=== PATIENT | male | born 1985 | race Caucasian/White ===

== ENCOUNTER 2016-11-15 05:01 | Emergency (ER) | payer OTHER ==
[~2016-11-15] VITALS: Ht 175.3 cm; Wt 104.3 kg
[~2016-11-15 05:01] MED LIST: ACHD5005 PO; ALBU8.5H4 IH; AMOX500C2 PO; AZIT-21 PO; CODE118S2 PO; CPR500T PO; CYCL10TA9 PO; DCS100C PO; DOXY100C2 PO; GFCD10B PO; HYDR1TAB PO; NAPR-243 PO; NAPR-689 PO; NAPR550T PO; PRD20T PO; PRED10TA PO; PRM25T PO; [UNRECOGNIZED DRUG - CODE] PO
[2016-11-15] MEDS ORDERED: ALLO300T2 (05:19)
[2016-11-15] MEDS ORDERED: PRD20T PO (06:29)
--- NOTE | 2016-11-15 06:29 | ED General ---
General Chief Complaint: Lower Extremity Stated Complaint: R THIGH PAIN Nursing Triage Note: PT TO ED 5 W/ C/O RT THIGH PAIN ET BURNING ONSET YESTERDAY, WORSE TODAY. DENIES INJURY. Nursing Sepsis Screen: No Definite Risk Source of Information: Patient Exam Limitations: No Limitations History of Present Illness Time Seen by Provider: 05:15 Initial Comments This 31-year-old gentleman presents to the emergency room with complaints of pain in the right thigh with accompanying paresthesia, more so affecting the medial portion of the thigh. Symptoms started yesterday. He denies any injury. He has chronic lower back pain but no acute exacerbation. He denies any recent travel or prolonged sedentary states. He quit smoking 9 months ago. 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 He has recently been seeing a chiropractor for neck issues and chronic back pain. He has not taken any medications for this. He presents to the emergency room at the urging of his . Allergies and Home Medications Allergies Coded Allergies: ibuprofen (Unverified Adverse Reaction, Unknown, 04/20/14) Home Medications Allopurinol 300 Mg Tablet, #30 (Reported) Prednisone 20 Mg Tab, 20 MG PO DAILY, #3 Prescribed by: MARI MEADE on 11/15/16 0629 Constitutional: no symptoms reported EENTM: no symptoms reported Respiratory: no symptoms reported Cardiovascular: no symptoms reported Gastrointestinal: no symptoms reported Genitourinary: no symptoms reported Musculoskeletal: see HPI Skin: no symptoms reported Psychiatric/Neurological: See HPI Hematologic/Lymphatic: No Symptoms Reported Immunological/Allergic: no symptoms reported Past Mqvxwhv-Uxpdgi-Wftnjg Hx Patient Social History Alcohol Use: Denies Use Recreational Drug Use: No Smoking Status: Never a Smoker Recent Foreign Travel: No Contact w/Someone Who Travel: No Recent Infectious Disease Expo: No Recent Hopitalizations: No Immunizations Up To Date Tetanus Booster (TDap): Less than 5yrs Seasonal Allergies Seasonal Allergies: No Surgeries HX Surgeries: Yes (STOMACH SCOPES) Respiratory Hx Respiratory Disorders: No Cardiovascular Hx Cardiac Disorders: No Neurological Hx Neurological Disorders: No Genitourinary Hx Genitourinary Disorders: No Gastrointestinal Hx Gastrointestinal Disorders: Yes Gastrointestinal Disorders: Gastroesophageal Reflux, Hiatal Hernia Musculoskeletal Hx Musculoskeletal Disorders: No Musculoskeletal Disorders: Gout Endocrine Hx Endocrine Disorders: No HEENT HX ENT Disorders: No Cancer Hx Cancer: No Psychosocial Hx Psychiatric Problems: Yes Behavioral Health Disorders: Anxiety, Bipolar, Depression Integumentary HX Skin/Integumentary Disorder: No Blood Transfusions Hx Blood Disorders: No Family Medical History Significant Family History: No Pertinent Family Hx Physical Exam Vital Signs Vital Sign - Last 12Hours 11/15/16 05:07 Temp 97.5 Pulse 78 Resp 20 B/P (MAP) 136/96 Pulse Ox 99 O2 Delivery Room Air Capillary Refill : Less Than 3 Seconds General Appearance: No Apparent Distress, WD/WN, Obese HEENT: Normal ENT Inspection Neck: Normal Inspection, Non Tender Respiratory: Lungs Clear, Normal Breath Sounds, No Accessory Muscle Use, No Respiratory Distress Cardiovascular: Regular Rate, Rhythm, No Edema, No Murmur Back: Normal Inspection Extremity: Normal Inspection, No Calf Tenderness, No Pedal Edema, Other ( tenderness in paresthesia to the medial right thigh. Pedal pulses normal. Sensation, capillary refill, and range of motion normal distally) Neurologic/Psychiatric: Alert, Oriented x3, No Motor/Sensory Deficits, Normal Mood/Affect, measuring machine tender II-XII Norm as Tested Skin: Normal Color, Warm/Dry Progress/Results/Core Measures Results/Orders Lab Results My Orders Vital Signs/I&O Blood Pressure Mean: 109 Progress Note : Progress Note D-dimer was obtained to evaluate for DVT. D-dimer was negative. Symptoms could be related to radiculopathy. This was discussed with the patient. Departure Impression Impression: Primary Impression: Paresthesia of right lower extremity Disposition: HOME, SELF-CARE Condition: Stable Departure-Patient Inst. Decision time for Depature: 06:15 Referrals: NO,LOCAL PHYSICIAN (PCP/Family) Primary Care Physician Patient Instructions: Paresthesias (DC), Radiculopathy Add. Discharge Instructions: The exact cause of your paresthesias uncertain but may be related to problems with your lower back. You may take ibuprofen up to 800 mg 3 times daily for back pain and relief of inflammation. If you're not improving over the next couple of days consider completing the steroids as prescribed. Follow-up with your primary care provider if not improving over the next couple of days. Return to the ER if symptoms worsen, especially if you develop changes with your bowels or bladder or develop weakness in your legs. All discharge instructions reviewed with patient and/or family. Voiced understanding. Scripts Prednisone (Prednisone) 20 Mg Tab 20 MG PO DAILY, #3 TAB Prov: MARI LIVINGSTON MD 11/15/16 MARI LIVINGSTON MD Nov 15, 2016 06:29
[2016-11-15 06:35] VITALS: BP 134/90
== END 2016-11-15 06:35 | disposition home or self-care (01) ==
LOC: EDUNIT# 05:01 → ER 05:05
DX: R20.2 Paresthesia of skin (principal); K21.9 Gastro-esophageal reflux disease without esophagitis; M10.9 Gout, unspecified; F41.9 Anxiety disorder, unspecified; F31.9 Bipolar disorder, unspecified; Z87.19 Personal history of other diseases of the digestive system
CPT/HCPCS: 36415; 85379; 99282

== ENCOUNTER 2017-02-28 03:35 | Emergency (ER) | payer SELFPAY ==
[~2017-02-28] VITALS: Ht 175.3 cm; Wt 104.3 kg
[~2017-02-28 03:35] MED LIST changes: +ALLO300T2
--- OUTSIDE RECORDS SUMMARY | 2017-02-28 03:45 | XMS REPORT | Continuity of Care Document ---
Author Author [facility] Address Unknown Phone Unavailable Allergies Active Description Code Type Severity Reaction Onset Reported/Identified Relationship to Patient Clinical Status Yes No Known Drug Allergies [id number] Drug Allergy Unknown N/ A 07/01/2013 Yes ibuprofen [id number] Drug Allergy Unknown N/A 04/20/2014 Medications Problems Date Dx Coded Attending Type Code Diagnosis Diagnosed By 11/14/2008 GLORIA SANDOVAL APRN 300.00 ANXIETY STATE UNSPECIFIED 11/14/2008 300.00 ANXIETY STATE UNSPECIFIED 11/14/2008 300.00 ANXIETY STATE UNSPECIFIED 11/14/2008 JAVY YUNG APRN 300.00 ANXIETY STATE UNSPECIFIED 11/14/2008 NIDA MENDOZA DO 300.00 ANXIETY STATE UNSPECIFIED 08/28/2009 Ot 883.0 08/28/2009 Ot 883.2 08/28/2009 Ot E000.8 08/28/2009 Ot E030 08/28/2009 Ot E849.0 08/28/2009 Ot E920.3 08/28/2009 Ot V06.1 11/17/2009 Ot 599.0 11/17/2009 Ot 789.06 11/24/2009 GLORIA SANDOVAL APRN 787.01 NAUSEA WITH VOMITING 11/24/2009 787.01 NAUSEA WITH VOMITING 11/24/2009 787.01 NAUSEA WITH VOMITING 11/24/2009 JAVY YUNG APRN 787.01 NAUSEA WITH VOMITING 11/24/2009 NIDA MENDOZA DO 787.01 NAUSEA WITH VOMITING 05/26/2010 GLORIA SANDOVAL APRN V74.1 SCREENING EXAMINATION FOR PULMONARY TUBERCULOSIS 05/26/2010 V74.1 SCREENING EXAMINATION FOR PULMONARY TUBERCULOSIS 05/26/2010 V74.1 SCREENING EXAMINATION FOR PULMONARY TUBERCULOSIS 05/26/2010 JAVY YUNG APRN V74.1 SCREENING EXAMINATION FOR PULMONARY TUBERCULOSIS 05/26/2010 NIDA MENDOZA DO V74.1 SCREENING EXAMINATION FOR PULMONARY TUBERCULOSIS 10/11/2010 Ot 847.0 10/11/2010 Ot 959.09 10/11/2010 Ot E000.8 10/11/2010 Ot E010.2 10/11/2010 Ot E849.0 10/11/2010 Ot E927.8 03/25/2011 Ot 789.03 06/29/2011 GLORIA SANDOVAL APRN S 530.81 ESOPHAGEAL REFLUX 06/29/2011 GLORIA SANDOVAL APRN S 553.3 HIATAL HERNIA 06/29/2011 GLORIA SANDOVAL APRN S 796.2 Blood Pressure Isolated Elevated 06/29/2011 530.81 ESOPHAGEAL REFLUX 06/29/2011 553.3 HIATAL HERNIA 06/29/2011 796.2 Blood Pressure Isolated Elevated 06/29/2011 530.81 ESOPHAGEAL REFLUX 06/29/2011 553.3 HIATAL HERNIA 06/29/2011 796.2 Blood Pressure Isolated Elevated 06/29/2011 AGA PERRY JAVY R 530.81 ESOPHAGEAL REFLUX 06/29/2011 AGA PERRY JAVY R 553.3 HIATAL HERNIA 06/29/2011 AGA PERRY JAVY R 796.2 Blood Pressure Isolated Elevated 06/29/2011 MENDOZA DO NIDA K 530.81 ESOPHAGEAL REFLUX 06/29/2011 MENDOZA SUSAN EVANSA K 553.3 HIATAL HERNIA 06/29/2011 MENDOZA SUSAN EVANSA K 796.2 Blood Pressure Isolated Elevated 01/03/2012 Ot 276.51 DEHYDRATION 01/03/2012 Ot 787.03 VOMITING ALONE 05/03/2012 Ot 079.99 VIRAL INFECTION NOS 05/03/2012 Ot 465.9 ACUTE URI NOS 05/03/2012 Ot 780.60 FEVER, UNSPECIFIED 05/05/2012 Ot 465.9 ACUTE URI NOS 05/05/2012 Ot 786.2 COUGH 06/13/2012 GLORIA SANDOVAL APRN S 780.79 fatigue 06/13/2012 GLORIA SANDOVAL APRN S 783.5 POLYDIPSIA 06/13/2012 GLORIA SANDOVAL APRN S 788.42 POLYURIA 06/13/2012 GLORIA SANDOVAL APRN S V18.0 FAMILY HISTORY OF DIABETES MELLITUS 06/13/2012 780.79 fatigue 06/13/2012 783.5 POLYDIPSIA 06/13/2012 788.42 POLYURIA 06/13/2012 V18.0 FAMILY HISTORY OF DIABETES MELLITUS 06/13/2012 780.79 fatigue 06/13/2012 783.5 POLYDIPSIA 06/13/2012 788.42 POLYURIA 06/13/2012 V18.0 FAMILY HISTORY OF DIABETES MELLITUS 06/13/2012 DIRK YUNG APRNINA R 780.79 fatigue 06/13/2012 DIRK YUNG APRNINA R 783.5 POLYDIPSIA 06/13/2012 AGA PERRY JAVY R 788.42 POLYURIA 06/13/2012 AGA PERRY JAVY R V18.0 FAMILY HISTORY OF DIABETES MELLITUS 06/13/2012 NIDA MENDOZA DO 780.79 fatigue 06/13/2012 NIDA MENDOZA DO K 783.5 POLYDIPSIA 06/13/2012 NIDA MENDOZA DO K 788.42 POLYURIA 06/13/2012 NIDA MENDOZA DO K V18.0 FAMILY HISTORY OF DIABETES MELLITUS 06/16/2012 Ot 724.2 LUMBAGO 07/05/2012 Ot 787.03 VOMITING ALONE 08/14/2012 578.1 BLOOD IN STOOL 08/14/2012 578.1 BLOOD IN STOOL 08/14/2012 JAVY YUNG APRN R 578.1 BLOOD IN STOOL 08/14/2012 NIDA MENDOZA DO K 578.1 BLOOD IN STOOL 08/28/2012 LENA OLIVARES, WILLIAM Lopez Ot 455.0 INT HEMORRHOID W/O COMPL 11/18/2012 STEPHIE DELGADO DO Ot 465.9 ACUTE URI NOS 11/18/2012 STEPHIE DELGADO DO Ot 786.2 COUGH 04/08/2013 STEPHIE DELGADO DO Ot 346.90 MIGRAINE UNSPECIFIED W/O INTRACT MGRN W/ 04/08/2013 STEPHIE DELGADO DO Ot 784.0 HEADACHE 05/05/2013 NEGRA TIWARI MD Ot 558.9 NONINF GASTROENTERIT NEC 05/05/2013 NEGRA TIWARI MD Ot 787.01 NAUSEA WITH VOMITING 05/24/2013 ABDIAS ARRIAZA [employer] SAL[employer] Ot 079.99 VIRAL INFECTION NOS 05/24/2013 ABDIAS ARRIAZA [employer] SAL[employer]OCIATE Ot 478.19 OTHER DISEASE OF NASAL CAVITY AND SINUSE 06/09/2013 ABDIAS ARRIAZA [employer] SAL[employer]ATE Ot 847.0 SPRAIN OF NECK 06/09/2013 ABDIAS ARRIAZA [employer] SAL[employer] ASSOCIATE Ot 959.09 INJURY OF FACE AND NECK 06/09/2013 ABDIAS ARRIAZA [employer] SAL[employer] ASSOCIATE Ot E000.8 OTHER EXTERNAL CAUSE STATUS 06/09/2013 ABDIAS ARRIAZA [employer] SALES ASSOCIATE Ot E849.[address] NEC 06/09/2013 ABDIAS ARRIAZA [employer] SALES ASSOCIATE Ot E927.0 OVEREXERTION FROM SUDDEN STRENUOUS MOVEM 07/01/2013 MOHIT DELGADO DOA K Ot 847.0 SPRAIN OF NECK 07/01/2013 MOHIT DELGADO DOA Heather Ot 847.2 SPRAIN LUMBAR REGION 07/01/2013 STEPHIE DELGADO DO Ot 959.19 OTH INJURY OF OTHER SITES OF TRUNK 07/01/2013 STEPHIE DELGADO DO Ot E000.8 OTHER EXTERNAL CAUSE STATUS 07/01/2013 STEPHIE DELGADO DO Ot E849.[address] NEC 07/01/2013 STEPHIE DELGADO DO Ot E885.9 FALL FROM SLIPPING, TRIPPING, OR STUMBLI 07/19/2013 NEGRA TIWARI MD Ot 840.9 SPRAIN SHOULDER/ARM NOS 07/19/2013 NEGRA TIWARI MD Ot 959.2 SHLDR/UPPER ARM INJ NOS 07/19/2013 NEGRA TIWARI MD Ot E000.8 OTHER EXTERNAL CAUSE STATUS 07/19/2013 NEGRA TIWARI MD Ot E007.6 ACTIVITIES INVOLVING BASKETBALL 07/19/2013 NEGRA TIWARI MD Ot E849.4 ACCID IN RECREATION AREA 07/19/2013 NEGRA TIWARI MD Ot E927.0 OVEREXERTION FROM SUDDEN STRENUOUS MOVEM 08/23/2013 JAVY YUNG APRN R 462 ACUTE PHARYNGITIS 08/23/2013 JAVY YUNG APRN 786.2 COUGH 08/23/2013 NIDA MENDOZA DO 462 ACUTE PHARYNGITIS 08/23/2013 NIDA MENDOZA DO 786.2 COUGH 11/18/2013 MIYA PEREZ Ot 305.1 TOBACCO USE DISORDER 11/18/2013 MIYA PEREZ Ot 461.9 ACUTE SINUSITIS NOS 11/18/2013 MIYA PEREZ Ot 490 BRONCHITIS NOS 11/18/2013 MIYA PEREZ Ot 784.0 HEADACHE 01/02/2014 YUDI COOPER MD Ot 305.1 TOBACCO USE DISORDER 01/02/2014 YUDI COOPER MD Ot 924.11 CONTUSION OF KNEE 01/02/2014 YUDI COOPER MD Ot 959.7 LOWER LEG INJURY NOS 01/02/2014 YUDI COOPER MD Ot E000.8 OTHER EXTERNAL CAUSE STATUS 01/02/2014 YUDI COOPER MD Ot E007.3 ACTIVITIES INVOLVING BASEBALL 01/02/2014 YUDI COOPER MD Ot E849.4 ACCID IN RECREATION AREA 01/02/2014 YUDI COOPER MD Ot E917.0 STRUCK IN SPORTS 02/18/2014 NIDA MENDOZA DO K 388.70 OTALGIA UNSPECIFIED 02/18/2014 NIDA MENDOZA DO 729.5 PAIN IN LIMB 03/04/2014 MARI HERRERA Ot 729.5 04/20/2014 Ot 525.9 04/20/2014 ABDIAS ARRIAZA [employer]ATE Ot 490 BRONCHITIS NOS 04/20/2014 ABDIAS ARRIAZA [employer] SALES ASSOCIATE Ot 786.2 COUGH 04/22/2014 ABDIAS ARRIAZA [employer] SALES ASSOCIATE Ot 490 04/22/2014 ABDIAS ARRIAZA [employer] SALES ASSOCIATE Ot 786.2 04/23/2014 Ot 789.00 04/23/2014 Ot 787.01 04/23/2014 Ot 536.2 04/23/2014 Ot 553.3 04/23/2014 Ot 783.21 04/23/2014 Ot 525.9 04/23/2014 WILLIAM PAREDES MD Ot V72.84 04/23/2014 MARI HERRERA Ot 729.5 04/23/2014 ABDIAS ARRIAZA APRN Ot 490 04/23/2014 ABDIAS ARRIAZA APRN Ot 786.2 05/08/2014 ABDIAS ARRIAZA [employer] SALES ASSOCIATE Ot 490 05/08/2014 ABDIAS ARRIAZA [employer] SALES ASSOCIATE Ot 786.2 05/14/2014 Ot 789.00 05/14/2014 Ot 787.01 05/14/2014 Ot 536.2 05/14/2014 Ot 553.3 05/14/2014 Ot 783.21 05/14/2014 Ot 525.9 05/14/2014 Ot 789.00 05/14/2014 Ot 787.01 05/14/2014 Ot 536.2 05/14/2014 Ot 553.3 05/14/2014 Ot 783.21 05/14/2014 Ot 525.9 05/14/2014 LENA OLIVARES, WILLIAM Lopez Ot V72.84 05/14/2014 MARI HERRERA Ot 729.5 05/14/2014 ABDIAS ARRIAZA [employer] SALES ASSOCIATE Ot 490 05/14/2014 ABDIAS ARRIAZA [employer] SALES ASSOCIATE Ot 786.2 11/15/2016 Ot F31.9 BIPOLAR DISORDER, UNSPECIFIED 11/15/2016 Ot F41.9 ANXIETY DISORDER, UNSPECIFIED 11/15/2016 Ot K21.9 GASTRO-ESOPHAGEAL REFLUX DISEASE WITHOUT 11/15/2016 Ot M10.9 GOUT, UNSPECIFIED 11/15/2016 Ot M79.651 PAIN IN RIGHT THIGH 11/15/2016 Ot R20.2 PARESTHESIA OF SKIN 11/15/2016 Ot Z87.19 PERSONAL HISTORY OF OTHER DISEASES OF 11/21/2016 Ot F31.9 BIPOLAR DISORDER, UNSPECIFIED 11/21/2016 Ot F41.9 ANXIETY DISORDER, UNSPECIFIED 11/21/2016 Ot K21.9 GASTRO-ESOPHAGEAL REFLUX DISEASE WITHOUT 11/21/2016 Ot M10.9 GOUT, UNSPECIFIED 11/21/2016 Ot M79.651 PAIN IN RIGHT THIGH 11/21/2016 Ot R20.2 PARESTHESIA OF SKIN 11/21/2016 Ot Z87.19 PERSONAL HISTORY OF OTHER DISEASES OF 01/28/2017 Ot 525.9 DENTAL DISORDER NOS 01/28/2017 LENA OLIVARES, WILLIAM Lopez Ot V72.84 EXAM PRE-OPERATIVE NOS 01/28/2017 MARI HERRERA Ot 729.5 PAIN IN LIMB Procedures Code Description [place] [address] ROUTINE VENIPUNCTURE 06/14/2012 06589 A1C (IN-HOUSE) 74139 CBC 06/14/2012 52848 CMP 06/14/2012 [id number] GFR CALC (RESULT ONLY) 06/14/2012 75377 TSH 06/14/2012 33220 INSULIN LEVEL GENERAL S WILLIAM PAREDES 08/14/2012 36085 US LOWER EXTREMITY ULTRASOUND 02/18/2014 Results Encounters ACCT No. Visit Date/Time Discharge Status Pt. Type Provider Facility Loc./Unit Complaint [id number] 02/18/2014 10:35:00 02/18/2014 23: 59:59 CLS Outpatient NIDA MENDOZA DO [id number] 08/23/2013 11:29:00 08/23/2013 23: 59:59 CLS Outpatient JAVY YUNG APRN [id number] 06/14/2012 08:44:00 06/14/2012 23: 59:59 CLS Outpatient JAIMEGLORAI HERNANDEZ APRN [id number] 08/21/2012 15:15:00 Document Registration [id number] 08/14/2012 12:48:00 Document Registration [id number] 04/20/2014 13:17:00 2014 16:01:00 DIS Emergency ABDIAS ARRIAZA APRN [facility] ER DIFFICULTY BREATHING COUGH [id number] 02/18/2014 11:27:00 2013 23:59:59 CLS Outpatient MARI HERRERA [facility] RAD LEFT THIGH PAIN WITH FAMILY HISTORY OF DVT [id number] 01/02/2014 02:04:00 2013 02:33:00 DIS Emergency YUDI COOPER MD [facility] ER LEFT KNEE PAIN [id number] 11/18/2013 10:28:00 2013 12:01:00 DIS Emergency MIYA PEREZ [facility] ER MIGRAINE, VOMITING [id number] 07/19/2013 10:19:00 2013 12:50:00 DIS Emergency NEGRA TIWARI MD [facility] ER RIGHT SHOULDER/ELBOW PAIN [id number] 07/01/2013 09:58:00 2013 11:36:00 DIS Emergency STEPHIE DELGADO DO [facility] ER NECK AND BACK PAIN [id number] 06/09/2013 20:27:00 2013 22:10:00 DIS Emergency ABDIAS ARRIAZA APRN [facility] ER NECK PAIN [id number] 05/24/2013 10:34:00 2013 12:25:00 DIS Emergency ABDIAS ARRIAZA APRN [facility] ER SINUS CONGESTION [id number] 05/05/2013 15:21:00 2013 18:16:00 DIS Emergency KARIE OLIVARES, NEGRA Romero [facility] ER VOMITING [id number] 04/08/2013 07:45:00 2012 08:40:00 DIS Emergency SANDY DO, STEPHIE K [facility] ER MIGRAINE [id number] 11/18/2012 10:38:00 2012 11:42:00 DIS Emergency SANDY DO, STEPHIE K [facility] ER CONGESTION HARD TO TAKE DEEP BREATHS [id number] 08/28/2012 10:05:00 2012 12:00:00 DIS Outpatient WILLIAM PAREDES MD [facility] SDC RECTAL BLEEDING [id number] 2012 14:06:00 2012 23:59:59 CLS Outpatient WILLIAM PAREDES MD [facility] PREOP RECTAL BLEEDING [id number] 11/15/2016 05:05:00 Document Registration [id number] 05/14/2014 10:18:00 Document Registration [id number] 05/14/2014 10:18:00 Document Registration [id number] 05/14/2014 10:18:00 Document Registration [id number] 05/14/2014 10:18:00 Document Registration [id number] 07/05/2012 07:48:00 Document Registration [id number] 06/16/2012 09:22:00 Document Registration [id number] 05/05/2012 09:22:00 Document Registration [id number] 05/03/2012 09:45:00 Document Registration [id number] 01/03/2012 21:23:00 Document Registration [id number] 03/25/2011 04:42:00 Document Registration [id number] 10/11/2010 20:50:00 Document Registration [id number] 07/19/2010 23:16:00 Document Registration [id number] 12/10/2009 10:29:00 Document Registration [id number] 11/26/2009 08:13:00 Document Registration [id number] 11/21/2009 08:59:00 Document Registration [id number] 11/17/2009 15:36:00 Document Registration [id number] 08/28/2009 13:37:00 Document Registration
[2017-02-28] MEDS ORDERED: LACTATED RINGERS 1,000 ML IV ONE (03:50)
[2017-02-28] MEDS ORDERED: HYOSCYAMINE 0.125 MG (LEVSIN) TAB SL ONE (04:00)
[2017-02-28] MEDS ORDERED: ONDANSETRON 4 MG/2 ML (SDV) Z0FRAN IVP ONE (04:00)
[2017-02-28 04:09] VITALS: BP 139/81
[2017-02-28 04:12] LABS: BASOPHILS % (AUTO) 0 % (0-10); EOSINOPHILS # (AUTO) 0.1 10^3/uL (0.0-0.3); EOSINOPHILS % (AUTO) 1 % (0-10); LYMPHOCYTES # (AUTO) 1.2 X 10^3 (1.0-4.0); LYMPHOCYTES % (AUTO) 7 % (12-44); MEAN CORPUSCULAR HEMOGLOBIN 32 PG (25-34); MEAN CORPUSCULAR HGB CONC 35 G/DL (32-36); MEAN CORPUSCULAR VOLUME 91 FL (80-99); MEAN PLATELET VOLUME 9.6 FL (7.4-10.4); MONOCYTES # (AUTO) 1.1 X 10^3 (0.0-1.0); MONOCYTES % (AUTO) 7 % (0-12); NEUTROPHILS # (AUTO) 14.7 X 10^3 (1.8-7.8); NEUTROPHILS % (AUTO) 86 % (42-75); PLATELET COUNT 301 10^3/uL (130-400); RED BLOOD COUNT 5.34 10^6/uL (4.35-5.85); RED CELL DISTRIBUTION WIDTH 13.1 % (10.0-14.5); WHITE BLOOD COUNT 17.2 10^3/uL (4.3-11.0)
[2017-02-28 04:31] LABS: ALANINE AMINOTRANSFERASE 83 U/L (0-55); ALBUMIN 4.5 GM/DL (3.2-4.5); ANION GAP 14 MMOL/L (5-14); ASPARTATE AMINO TRANSFERASE 37 U/L (5-34); BILIRUBIN,TOTAL 0.6 MG/DL (0.1-1.0); BLOOD UREA NITROGEN 15 MG/DL (7-18); BUN/CREATININE RATIO 13; CALCIUM 9.5 MG/DL (8.5-10.1); CARBON DIOXIDE 21 MMOL/L (21-32); CHLORIDE 106 MMOL/L (98-107); CREATININE SERUM 1.13 MG/DL (0.60-1.30); GFR ESTIMATED > 60; GLUCOSE 146 MG/DL (70-105); MAGNESIUM 2.1 MG/DL (1.8-2.4); POTASSIUM 4.4 MMOL/L (3.6-5.0); SODIUM 141 MMOL/L (135-145); TOTAL PROTEIN 6.9 GM/DL (6.4-8.2)
[2017-02-28 04:36] LABS: BAND NEUTROPHILS 5 %; BASOPHILS % (MANUAL) 0 %; EOSINOPHILS % (MANUAL) 0 %; LYMPHOCYTES % (MANUAL) 4 %; NEUTROPHILS % (MANUAL) 83 %; REACTIVE LYMPHOCYTES 2 %
--- NOTE | 2017-02-28 04:40 | ED General ---
General Chief Complaint: Cough/Cold/Flu Symptoms Stated Complaint: FLU Nursing Triage Note: VOMITTING/DIARRHEA, BODY ACHES Nursing Sepsis Screen: No Definite Risk Source of Information: Patient Exam Limitations: No Limitations History of Present Illness Time Seen by Provider: 03:43 Initial Comments This 31-year-old gentleman presents to the emergency room with complaints of vomiting and diarrhea since 20:00. He has chills but has been afebrile. He is noted to be tachycardic. He has no significant abdominal pain. He has some abdominal cramping with the diarrhea. Allergies and Home Medications Allergies Coded Allergies: ibuprofen (Unverified Adverse Reaction, Unknown, 04/20/14) Home Medications No Active Prescriptions or Reported Meds Constitutional: see HPI EENTM: no symptoms reported Respiratory: no symptoms reported Cardiovascular: see HPI Gastrointestinal: see HPI Genitourinary: no symptoms reported Musculoskeletal: no symptoms reported Skin: no symptoms reported Psychiatric/Neurological: No Symptoms Reported Hematologic/Lymphatic: No Symptoms Reported Immunological/Allergic: no symptoms reported Past Uswaxgd-Goptmr-Zbxahv Hx Patient Social History Alcohol Use: Denies Use Recreational Drug Use: No Smoking Status: Never a Smoker 2nd Hand Smoke Exposure: No Recent Foreign Travel: No Contact w/Someone Who Travel: No Recent Infectious Disease Expo: No Recent Hopitalizations: No Immunizations Up To Date Tetanus Booster (TDap): Less than 5yrs Seasonal Allergies Seasonal Allergies: Yes Surgeries History of Surgeries: Yes (STOMACH SCOPES) Surgeries: Abdominal (EGD), Tonsillectomy Respiratory History of Respiratory Disorde: No Cardiovascular History of Cardiac Disorders: No Neurological History of Neurological Disord: No Genitourinary History of Genitourinary Disor: No Gastrointestinal History of Gastrointestinal Di: Yes Gastrointestinal Disorders: Gastroesophageal Reflux, Hiatal Hernia Musculoskeletal History of Musculoskeletal Dis: Yes Musculoskeletal Disorders: Gout Endocrine History of Endocrine Disorders: No HEENT History of HEENT Disorders: No Cancer History of Cancer: No Psychosocial History of Psychiatric Problem: Yes Behavioral Health Disorders: Anxiety, Bipolar, Depression Integumentary History of Skin or Integumenta: No Blood Transfusions History of Blood Disorders: No Family Medical History Significant Family History: No Pertinent Family Hx Physical Exam Vital Signs Vital Sign - Last 12Hours 02/28/17 03:47 Temp 98.8 Pulse 108 Resp 18 B/P (MAP) 136/89 Pulse Ox 96 O2 Delivery Room Air Capillary Refill : Less Than 3 Seconds General Appearance: No Apparent Distress, WD/WN HEENT: PERRL/EOMI, Normal ENT Inspection, Other (oropharynx somewhat dry) Neck: Normal Inspection Respiratory: Lungs Clear, Normal Breath Sounds, No Accessory Muscle Use, No Respiratory Distress Cardiovascular: No Edema, No Murmur, Tachycardia (regular) Gastrointestinal: Normal Bowel Sounds, Non Tender, Soft Extremity: Normal Inspection, No Pedal Edema Neurologic/Psychiatric: Alert, Oriented x3, No Motor/Sensory Deficits, Normal 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, 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 Norm as Tested Progress/Results/Core Measures Results/Orders Lab Results Laboratory Tests Test 02/28/17 04:00 Range/Units White Blood Count 17.2 H 4.3-11.0 10^3/uL Red Blood Count 5.34 4.35-5.85 10^6/uL Hemoglobin 16.9 13.3-17.7 G/DL Hematocrit 49 40-54 % Mean Corpuscular Volume 91 80-99 FL Mean Corpuscular Hemoglobin 32 25-34 PG Mean Corpuscular Hemoglobin Concent 35 32-36 G/DL Red Cell Distribution Width 13.1 10.0-14.5 % Platelet Count 301 130-400 10^3/uL Mean Platelet Volume 9.6 7.4-10.4 FL Neutrophils (%) (Auto) 86 H 42-75 % Lymphocytes (%) (Auto) 7 L 12-44 % Monocytes (%) (Auto) 7 0-12 % Eosinophils (%) (Auto) 1 0-10 % Basophils (%) (Auto) 0 0-10 % Neutrophils # (Auto) 14.7 H 1.8-7.8 X 10^3 Lymphocytes # (Auto) 1.2 1.0-4.0 X 10^3 Monocytes # (Auto) 1.1 H 0.0-1.0 X 10^3 Eosinophils # (Auto) 0.1 0.0-0.3 10^3/uL Basophils # (Auto) 0.0 0.0-0.1 10^3/uL Neutrophils % (Manual) 83 % Lymphocytes % (Manual) 4 % Monocytes % (Manual) 6 % Eosinophils % (Manual) 0 % Basophils % (Manual) 0 % Band Neutrophils 5 % Reactive Lymphocytes 2 % Toxic Granulation 1+ Blood Morphology Comment NORMAL Sodium Level 141 135-145 MMOL/L Potassium Level 4.4 3.6-5.0 MMOL/L Chloride Level 106 98-107 MMOL/L Carbon Dioxide Level 21 21-32 MMOL/L Anion Gap 14 5-14 MMOL/L Blood Urea Nitrogen 15 7-18 MG/DL Creatinine 1.13 0.60-1.30 MG/DL Estimat Glomerular Filtration Rate > 60 BUN/Creatinine Ratio 13 Glucose Level 146 H 70-105 MG/DL Calcium Level 9.5 8.5-10.1 MG/DL Magnesium Level 2.1 1.8-2.4 MG/DL Total Bilirubin 0.6 0.1-1.0 MG/DL Aspartate Amino Transf (AST/SGOT) 37 H 5-34 U/L Alanine Aminotransferase (ALT/SGPT) 83 H 0-55 U/L Alkaline Phosphatase 45 40-136 U/L Total Protein 6.9 6.4-8.2 GM/DL Albumin 4.5 3.2-4.5 GM/DL My Orders Orders - MARI LIVINGSTON MD Cbc With Automated Diff (02/28/17 03:50) Comprehensive Metabolic Panel (02/28/17 03:50) Magnesium (02/28/17 03:50) Saline Lock/Iv-Start (02/28/17 03:50) Lactated Ringers (Lr 1000 Ml Iv Solution (02/28/17 03:50) Ondansetron Injection (Zofran Injectio (02/28/17 04:00) Hyoscyamine Sl Tablet (Levsin Sl Tablet) (02/28/17 04:00) Manual Differential (02/28/17 04:00) Ns Iv 500 Ml (Sodium Chloride 0.9%) (02/28/17 04:45) Rx-Ondansetron Po (Rx-Zofran Po) (02/28/17 04:45) Rx-Hyoscyamine Tab (Rx-Levsin Sl) (02/28/17 04:45) Medications Given in ED Current Medications Medications Dose Ordered Sig/Sara Route Start Time Stop Time Status Last Admin Dose Admin Hyoscyamine Sulfate 0.25 mg ONCE ONCE SL 02/28/17 04:00 02/28/17 04:01 DC 02/28/17 04:04 0.25 MG Lactated Ringer's 1,000 ml @ 0 mls/hr Q0M ONCE IV 02/28/17 03:50 02/28/17 03:52 DC 02/28/17 04:05 0 MLS/HR Ondansetron HCl 8 mg ONCE ONCE IVP 02/28/17 04:00 02/28/17 04:01 DC 02/28/17 04:04 8 MG Sodium Chloride 500 ml @ 0 mls/hr Q0M ONCE IV 02/28/17 04:45 02/28/17 04:48 DC 02/28/17 04:51 0 MLS/HR Vital Signs/I&O Vital Sign - Last 12Hours 02/28/17 02/28/17 02/28/17 02/28/17 03:47 04:09 04:45 05:20 Temp 98.8 98.2 Pulse 108 94 88 92 Resp 18 16 16 16 B/P (MAP) 136/89 139/81 133/71 Pulse Ox 96 96 97 95 O2 Delivery Room Air Room Air Room Air Room Air Blood Pressure Mean: 100 Progress Note #1: Time: 04:00 Progress Note Patient is tachycardic, likely reflecting hypovolemia. Labs will be checked. IV fluids have been initiated. Symptoms will be treated with Zofran and Levsin. Progress Note #2: Progress Note Patient's symptoms improved with treatment. He was dismissed home with take- home packet of Levsin and Zofran. Departure Impression Impression: Primary Impression: Nausea vomiting and diarrhea Additional Impressions: Hypovolemia Leukocytosis Qualified Codes: D72.829 - Elevated white blood cell count, unspecified Disposition: 01 HOME, SELF-CARE Condition: Improved Departure-Patient Inst. Decision time for Depature: 04:57 Referrals: NO,LOCAL PHYSICIAN (PCP/Family) Primary Care Physician Patient Instructions: Viral Gastroenteritis Add. Discharge Instructions: Drink plenty of clear liquids. Gradually advance your diet with small quantities of bland food as tolerated. Dissolve Zofran (ondansetron) under the tongue every 4 hours as needed for nausea and vomiting. Dissolve Levsin ( hyoscyamine) under the tongue every 4 hours as needed for abdominal cramping and diarrhea. Return to care if symptoms worsen or are not improving. You may use Tylenol (acetaminophen) up to 1000 mg every 6 hours as needed for pain, fever, or chills. No milk products until diarrhea has resolved for at least 24 hours. Follow-up with your primary care provider this week. Please call for an appointment this morning. All discharge instructions reviewed with patient and/or family. Voiced understanding. Scripts No Active Prescriptions or Reported Meds MARI LIVINGSTON MD Feb 28, 2017 04:40
[2017-02-28 04:45] VITALS: BP 133/71
[2017-02-28] MEDS ORDERED: RX-ONDANSETRON 4 MG ODT (ZOFRAN) PPK #4 SL STA (04:45)
[2017-02-28] MEDS ORDERED: RX-HYOSCYAMINE 0.125 MG SL (LEVSIN) PPK#6 SL STA (04:45)
[2017-02-28] MEDS ORDERED: NS IV 500 ML 500 ML IV ONE (04:45)
[2017-02-28 05:20] VITALS: BP 126/82
== END 2017-02-28 05:23 | disposition home or self-care (01) ==
LOC: EDUNIT# 03:35 → ER 03:38
DX: R11.2 Nausea with vomiting, unspecified (principal); R19.7 Diarrhea, unspecified; E86.1 Hypovolemia; D72.829 Elevated white blood cell count, unspecified; K21.9 Gastro-esophageal reflux disease without esophagitis; M81.0 Age-related osteoporosis without current pathological fracture; F41.9 Anxiety disorder, unspecified; F31.9 Bipolar disorder, unspecified; Z90.89 Acquired absence of other organs; Z87.19 Personal history of other diseases of the digestive system
CPT/HCPCS: 36415; 80053; 83735; 85007; 85027

== ENCOUNTER → 2017-09-01 | Outpatient (REF) | payer OTHER ==
--- NOTE | 2017-09-01 09:18 | Diagnostic Imaging Report ---
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 Time of exam 9:28 AM IMPRESSION: No radiopaque orbital foreign body is detected. Dictated by: Dictated on workstation # [id number]
--- NOTE | 2017-09-01 11:04 | Diagnostic Imaging Report ---
PROCEDURE: MRI right joint lower extremity without contrast. TECHNIQUE: Multiplanar, multisequence non contrast-enhanced MRI of the right lower extremity was accomplished. INDICATION: Twisted right knee one week ago, complaining of medial knee pain. FINDINGS: There is some marrow edema identified within the medial femoral condyle consistent with a bone bruise. No fracture is identified. No significant joint effusion is detected. The ACL and PCL are intact. The medial and lateral menisci are intact. Medial and lateral collateral ligament complexes are intact. The extensor mechanism is unremarkable. The articular cartilage is intact. No osteochondral lesion is seen. IMPRESSION: Findings consistent with a bone bruise of the medial femoral condyle. No definite ligamentous or meniscal injury is identified. Dictated by: Dictated on workstation # [id number]
== END | disposition home or self-care (01) ==
LOC: RAD 08:32
PROVIDERS: ATTEND Nurse Practitioner Family
CPT/HCPCS: 70250; 73721

== ENCOUNTER 2017-12-15 23:28 | Emergency (ER) | payer OTHER ==
[~2017-12-15] VITALS: Ht 175.3 cm; Wt 108.9 kg
[2017-12-16 00:31] VITALS: BP 136/89
== END 2017-12-16 01:10 | disposition left against medical advice (07) ==
LOC: EDUNIT# 23:28 → ER 23:31
DX: R03.0 Elevated blood-pressure reading, without diagnosis of hypertension (principal); R42 Dizziness and giddiness; K21.9 Gastro-esophageal reflux disease without esophagitis; F41.9 Anxiety disorder, unspecified; F31.9 Bipolar disorder, unspecified; Z90.89 Acquired absence of other organs; Z87.19 Personal history of other diseases of the digestive system
CPT/HCPCS: 99283

== ENCOUNTER → 2018-10-05 | Outpatient (CLI) | payer BC ==
--- NOTE | 2018-10-05 10:13 | Diagnostic Imaging Report ---
PROCEDURE: CT chest with contrast only. TECHNIQUE: Multiple contiguous axial images were obtained through the chest after administration of intravenous contrast. Auto Exposure Controls were utilized during the CT exam to meet ALARA standards for radiation dose reduction. INDICATION: Left-sided chest pain. COMPARISON: No prior studies are available for comparison. FINDINGS: No axillary lymphadenopathy is identified. No hilar or mediastinal lymphadenopathy is detected. No pericardial or pleural fluid is detected. No pulmonary infiltrates, nodules or masses are seen. Central airways are patent. The bony structures are unremarkable. Upper abdomen demonstrates generalized hepatic low density consistent with hepatic steatosis. IMPRESSION: 1. Unremarkable CT of the chest. 2. Hepatic steatosis. Dictated by: Dictated on workstation # [id number]
== END ==
LOC: RAD 08:40
PROVIDERS: ATTEND Pediatrics
DX: K76.0 Fatty (change of) liver, not elsewhere classified (principal); R07.89 Other chest pain
CPT/HCPCS: 71260

== ENCOUNTER 2019-07-28 09:14 | Emergency (ER) | payer OTHER, BC ==
[~2019-07-28] VITALS: Ht 177.8 cm; Wt 117.2 kg
[2019-07-28] MEDS ORDERED: LISI-556 (09:32)
[2019-07-28] MEDS ORDERED: KETOROLAC 60 MG/2 ML VIAL IM STA (09:40)
[2019-07-28] MEDS ORDERED: ORPHENADRINE 60 MG/2 ML (NORFLEX) AMP IM STA (09:40)
--- NOTE | 2019-07-28 09:50 | ED Back Pain ---
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 PAIN WORSE LAST NIGHT. Nursing Sepsis Screen: No Definite Risk Source of Information: Patient Exam Limitations: No Limitations History of Present Illness Date Seen by Provider: Jul 28, 2019 Time Seen by Provider: 09:24 Initial Comments Here with report of low back pain that is on the left and radiates around to the left buttock. Onset 6 days ago while at work. 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 They are having to pull the patient on a sheet to get a physician to lift to a cot. The sheet for and he felt it pull in his back and a twinge with some pain at that time. Afterwards, during the left, he had another twinge of pain. He has been dealing with that using Tylenol this week but today it was much worse. He noted last night when he was sitting on a couch that the pain was getting worse. This morning he was unable to get up without significant pain. Denies bowel or bladder incontinence. Denies numbness between his legs. Sent here for further evaluation related to workup. He did get the chiropractor which helped a little but but he was too tight for him to get much manipulation and ended up with just lower back and upper back massage. Timing/Duration: 5-6 Days Severity: Moderate Pain/Injury Location: Back Radiation: Buttocks Method of Injury: Other (lifting) Modifying Factors: Worse With Movement, Worse With Other (transitions between lying to sitting and sitting to standing cause the most pain. Is able to walk without difficulty and with less pain.) Associated Symptoms: muscle spasms; No weakness, No numbness in legs/feet, No tingling in legs/feet, No sensory/motor loss; lower back pain; No loss of bladder control, No loss of bowel control Allergies and Home Medications Allergies Coded Allergies: No Known Drug Allergies (Unverified , 07/28/19) Patient Home Medication List Home Medication List Reviewed: Yes Review of Systems Constitutional: no symptoms reported Respiratory: no symptoms reported Cardiovascular: no symptoms reported Musculoskeletal: see HPI, muscle pain, muscle stiffness; No muscle weakness Psychiatric/Neurological: No Symptoms Reported Past Sfeliyd-Vxcyev-Znsnxs Hx Past Med/Social Hx: Reviewed Nursing Past Med/Soc Hx Patient Social History Alcohol Use: Occasionally Uses Recreational Drug Use: No Smoking Status: Never a Smoker Type Used: Smokeless Tobacco 2nd Hand Smoke Exposure: No Recent Foreign Travel: No Contact w/Someone Who Travel: No Recent Infectious Disease Expo: No Recent Hopitalizations: No Immunizations Up To Date Tetanus Booster (TDap): Less than 5yrs Seasonal Allergies Seasonal Allergies: Yes Past Medical History Surgeries: Yes (EGD) Abdominal, Tonsillectomy Respiratory: No Cardiac: No Neurological: No Genitourinary: No Gastrointestinal: Yes Gastroesophageal Reflux, Hiatal Hernia Musculoskeletal: Yes Gout Endocrine: No HEENT: No Cancer: No Psychosocial: Yes Anxiety, Bipolar, Depression Integumentary: No Blood Disorders: No Family Medical History Reviewed Nursing Family Hx No Pertinent Family Hx Physical Exam Vital Signs Vital Signs - First Documented 07/28/19 09:17 Temp 36.8 Pulse 93 Resp 18 B/P (MAP) 149/89 (109) Pulse Ox 97 O2 Delivery Room Air Capillary Refill : Less Than 3 Seconds Height, Weight, BMI Height: 5'9.00" Weight: 240lbs. oz. 108.584655xg; 37.00 BMI Method:Stated General Appearance: WD/WN, Mild Distress Cardiovascular: Regular Rate, Rhythm, No Murmur Respiratory: Lungs Clear, Normal Breath Sounds Back: Decreased Range of Motion, Muscle Spasm (left lateral low back parasp inous muscle spasm and tightness noted.), Other (tender just lateral of midline on the left side) Neurologic/Psychiatric: Alert, Oriented x3, No Motor/Sensory Deficits Skin: Normal Color, Warm/Dry Progress/Results/Core Measures Results/Orders My Orders Orders - LIBORIO FLOWER MD Ketorolac Injection (Toradol Injection) (07/28/19 09:40) Orphenadrine Injection (Norflex Injectio (07/28/19 09:40) Vital Signs/I&O 07/28/19 09:17 Temp 36.8 Pulse 93 Resp 18 B/P (MAP) 149/89 (109) Pulse Ox 97 O2 Delivery Room Air Blood Pressure Mean: 109 Progress Progress Note : Progress Note Seen and evaluated. Toradol 60 mg IM and Norflex 60 mg IM. Worker's compensation for complete. Will be sent to occupational health for appropriate screens as needed. Discharged home with return precautions. Patient verbalize understanding instructions and agreement with plan. No indication for x-ray currently. Departure Impression Primary Impression: Lumbar sprain Qualified Codes: S33.5XXA - Sprain of ligaments of lumbar spine, initial encounter Additional Impression: Lumbar radiculopathy Disposition: HOME, SELF-CARE Condition: Stable Departure-Patient Inst. Decision time for Depature: 09:58 Referrals: EULALIO GALLEGOS MD (PCP/Family) Primary Care Physician Patient Instructions: Lumbar Muscle Strain (DC), Radiculopathy (DC) Add. Discharge Instructions: All discharge instructions reviewed with patient and/or family. Voiced understanding. You may take ibuprofen 800 mg every 8 hours as needed for pain. You may also take Tylenol/acetaminophen 1000 mg every 8 hours as needed for pain. Do not take the hydrocodone containing compounds while taking Tylenol/acetaminophen as they both have acetaminophen in them. You may use [id number] Icy Hot with lidocaine patches, Aspercreme with lidocaine patches, Salonpas with lidocaine patches or similar items to area of concern per package directions. Follow-up with occupational health on Tuesday for recheck and further evaluation. Return for worse pain, weakness, numbness between your legs, difficulty with walking or going to the bathroom or other concerns as needed. Scripts Hydrocodone/Acetaminophen (Hydrocodone/Acetaminophen 5 MG/325 MG TAB) 1 Each Tablet 1 TAB PO Q6H PRN for PAIN-MODERATE (5-7) MDD 10 TABS for 3 Days, #6 TAB 0 Refills Prov: LIBORIO FLOWER MD 07/28/19 LIBORIO FLOWER MD Jul 28, 2019 09:50
[2019-07-28] MEDS ORDERED: HYDR-4226 PO (10:02)
--- OUTSIDE RECORDS SUMMARY | 2019-07-28 10:04 | XMS REPORT ---
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 Name Role Phone JAVY Wang Unavailable PROBLEMS Type Condition ICD9-CM Code GMN83-IA Code Onset Dates Condition S tatus SNOMED Code Problem Family history of diabetes mellitus V18.0 Active 806966303 Problem Counseling on substance use and abuse V65.42 Active 474038584 Problem Polyuria 788.42 Active 70529844 Problem Elevated blood pressure reading without diagnosi s of hypertension 796.2 Active 226263383 Problem Other malaise and fatigue 780.79 Acti ve 304090548 Problem Pain in soft tissues of limb 729.5 A ctive 15206014 Problem Blood in stool 578.1 Active 57213 9008 Problem Unspecified otalgia 388.70 Active 23387357 Problem Polydipsia 783.5 Active 14574395 Problem Nondependent tobacco use disorder 305.1 Active 825744141 Problem Cough 786.2 Active 07450867 Problem Diaphragmatic hernia without mention of obstruction or gangrene 553.3 Active 05935475 Problem Esophageal reflux 530.81 Active 24 6750580 Problem Unspecified dental caries 521.00 Acti ve 85581856 Problem Acute pharyngitis 462 Active 36 0639399 ALLERGIES No Information ENCOUNTERS Encounter Location Date Diagnosis [facility] [address] [facility] [id number] [place] [address] Dec, Encounter for immunization Z 23 [facility] [address] [id number] [place] [address] Dec, [facility] [address] [id number] [place] [address] Dec, [facility] [address] [id number] [place] [address] Nov, Tuberculosis screening Z11.1 ; School ph ysical exam Z02.0 ; Need for hepatitis B screening test Z11.59 and Encounter for immunization Z23 [facility] [id number] [place] [address] 14 Jul, 2014 [facility] [address] [id number] [place] [address] Jul, [facility] [id number] [place] [address] Jun, [facility] [id number] [place] [address] Jun, [facility] [id number] [place] [address] Feb, [facility] [id number] [place] [address] Feb, [facility] [id number] [place] [address] Feb, [facility] [id number] [place] [address] Feb, [facility] [id number] [place] [address] August, [facility] [id number] [place] [address] August, [facility] [id number] [place] [address] August, [facility] [id number] [place] [address] August, [facility] [id number] [place] [address] Jul, [facility] [id number] [place] [address] Jul, [facility] [id number] [place] [address] Jun, [facility] [id number] [place] [address] May, [facility] [id number] [place] [address] May, [facility] [address] [id number] [place] [address] Nov, [facility] [id number] [place] [address] Nov, [facility] [id number] [place] [address] Jun, [facility] [address] [id number] [place] [address] Jun, IMMUNIZATIONS No Known Immunizations SOCIAL HISTORY Never Assessed REASON FOR VISIT PLAN OF CARE VITAL SIGNS Height 70 in 2013-08-23 Weight 199.7 lbs 2013-08-23 Temperature 99.6 degrees Fahrenheit 2013-08-23 Heart Rate 92 bpm 2013-08-23 Respiratory Rate 22 2013-08-23 Blood pressure systolic 140 mmHg 2013-08-23 Blood pressure diastolic 82 mmHg 2013-08-23 MEDICATIONS Unknown Medications RESULTS No Results PROCEDURES No Known procedures INSTRUCTIONS MEDICATIONS ADMINISTERED No Known Medications MEDICAL (GENERAL) HISTORY Type Description Date Medical History HTN Surgical History tonsils removal 5 years old
--- OUTSIDE RECORDS SUMMARY | 2019-07-28 10:04 | XMS REPORT ---
Author Author [employer]. 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 Name Role Phone NO, LOCAL PHYSICIAN Unavailable Unavailable NO, LOCAL PHYSICIAN Unavailable Unavailable NO, LOCAL PHYSICIAN Unavailable Unavailable GUANAKO MOHAMUD Unavailable MIKI OLIVARES, MARI Corey Unavailable Unavailable MUNDO OLIVARES, LIBORIO Baldwin Unavailable Unavailable KARIE OLIVARES, NEGRA Romero Unavailable Unavailable ABDIAS ARRIAZA APRN Unavailable Unavailable KENNETH OLIVARES, YUDI Tirado Unavailable Unavailable SANDY DO, STEPHIE K Unavailable Unavailable HANG GALLEGOS Unavailable HANG GALLEGOS Unavailable HANG GALLEGOS Unavailable NIDA MENDOZA Unavailable MARI HERRERA Unavailable Unavailable Migration, Doctor Unavailable Unavailable Migration, Doctor Unavailable Unavailable Migration, Doctor Unavailable Unavailable GUANAKO MOHAMUD MD Unavailable Unavailable MARKIE MANCILLA Unavailable GLORIA SANDOVAL Unavailable Migration, Doctor Unavailable Unavailable EBENEZER ROUSE DO Unavailable Unavailable EBENEZER ROUSE DO Unavailable Unavailable MIKI OLIVARES, MARI Corey Unavailable Unavailable MUNDO OLIVARES, LIBORIO Baldwin Unavailable Unavailable JAVY Wang Unavailable Allergies The data below is from unstructured sources Allergen Type Severity Reaction Status Last Updated ibuprofen Adverse Reaction Unknown Active 04/20/14 Allergen Type Severity Reaction Status Last Updated No Known Drug Allergies Active 07/01/13 No Information Medications Medication Ingredient Drug Dose Dates Status Sig Sig Care Class(es) (Normalized) (Original) Provid er lisinopril lisinopril Angiotensin 5 mg Active no Lisinopril 5 no 5 mg oral Translation Converting information MG Orally name tablet (1 s: [ Enzyme Once a day 1 (no source.) Lisinopril Inhibitor tablet 24h phone) 5 MG] 30 day(s) Active no Ventolin no 2 07-04-19 Active take 2 Ventolin HF A no information HFA 90 information puff(s 15 puff(s) by 90 n gina (1 source.) mcg/actuati ) inhalation mcg/actuatio (no on every four n inhale 2 phone) to six hours puff by as needed Inhalation for cough route as needed every 4-6 hours PRN for cough or wheeze Jun, Active Problems Active Problems Problem Normalized Date of Normalized Normalized Provider Fac ility Classification Problem(s) Problem Problem Problem Sta tus Onset/Resoluti Duration on Osteoporosis Age-related Chronic Active MARI [facility] Via (9 sources.) osteoporosis Priya [place] without [facility] pathological (26359) fracture Anxiety Anxiety Chronic Active MARI [facility] Via disorders (19 disorder, Priya [place] sources.) unspecified [facility] (84680) Mood disorders Bipolar Chronic Active MARI [facility] Via (19 sources.) disorder, Priya [place] unspecified [facility] (71461) Other lower Cough Episodic Active HANG ROSY Communi ty respiratory Translations: [address] [place] [address] Center disease (11 [ Cough, of [place] sources[place] Cough] [place] ([address]) Abdominal Diaphragmatic Episodic Active HANG GALLEGOS Comm unity hernia ([id number] [place] [address] sources.) Translations: of [place] [ [place] ([address]) Diaphragmatic hernia without mention of obstruction or gangrene, Diaphragmatic hernia without mention of obstruction or gangrene] Other Elevated Episodic Active HANG GALLEGOS [facility] circulatory blood-pressure [address] [place], [place] [address]e r disease (11 reading of [facility] sources.) without [place] ([address]) diagnosis of hypertension Translations: [ Elevated blood pressure reading without diagnosis of hypertension, Elevated blood pressure reading without diagnosis of hypertension] Administrative Encounter for Episodic Active HANG GALLEGOS [facility] /social examination [address] [place] [address] Center admission (11 for admission of [facility] sources.) to educational [place] ([address]) institution Translations: [ - School physical exam Z02.0, - School physical exam Z02.0] Immunizations Encounter for Episodic Active HANG AGLLEGOS Community and screening immunization [address] [place] [address] for infectious Translations: of [facility] disease (20 [ - Encounter [place] ([address]456) sources.) for immunization Z23, - Tuberculosis screening Z11.1, - Need for hepatitis B screening test Z11.59, - Encounter for immunization Z23, - Tuberculosis screening Z11.1, - Need for hepatitis B screening test Z11.59] Other Excessive Episodic Active HANG GALLEGOS Communit y nutritional; thirst [address] [facility] Center endocrine; and Translations: of [facility] metabolic [ Polydipsia, [place] ([address]) disorders (11 Polydipsia] sources.) Other liver Fatty (change Chronic Active GUANAKO MOHAMUD MD [facility] Via diseases (4 of) liver, not Priya sources.) elsewhere Hospital - classified [place] ([address]) Residual FH: Diabetes Episodic Active Doctor Community codes; mellitus Migration [facility] unclassified Translations: of [facility] (7 sources.) [ Family [place] ([address]653) history of diabetes mellitus] Esophageal Gastro-esophag Chronic Active MARI Not Av ailable disorders (20 eal reflux MIKI , (40921) sources.) disease MD without esophagitis Translations: [ Esophageal reflux, Esophageal reflux, Esophageal reflux] Gout and other Gout, Chronic Active MARI [facility] Via crystal unspecified Priya [place] arthropsummer OLIVARES Hospital - (7 sources.) [place] ([address]) Gastrointestin Hematochezia Episodic Active HANG GALLEGOS Community al hemorrhage Translations: [address] [facility] Center (11 sources.) [ Blood in [facility] stool, Blood [place] ([address]415) in stool] Malaise and Malaise and Episodic Active HANG GALLEGOS Comm unity fatigue (11 fatigue [address] Health Center sources.) Translations: of [facility] [ Other [place] ([address]) malaise and fatigue, Other malaise and fatigue] Other ear and Otalgia Episodic Active HANG Holbrooku nity sense organ Translations: [address] Health [facility] disorders (11 [ Unspecified of [place] sources.) otalgia, [place] ([address]) Unspecified otalgia] Other Pain in limb Episodic Active HANG GALLEGOS Commu nity connective Translations: [address] Health Center tissue disease [ Pain in soft of [facility] (11 sources.) tissues of [place] ([address]2263) limb, Pain in soft tissues of limb] Genitourinary Polyuria Episodic Active HANG GALLEGOS Commu nity symptoms and Translations: [address] [facility] Center ill-defined [ Polyuria, of [facility] conditions (11 Polyuria] [place] ([address]) sources.) Substance-rela Tobacco use Chronic Active YUDI COOPER , Not Available chani disorders disorder (44625) (3 sources.) Unclassified Tobacco user Chronic Active HANG GALLEGOS Co mmunity (10 sources.) Translations: [address] [place] [address] [ Nondependent of [facility] tobacco use [place] ([address]) disorder, Nondependent tobacco use disorder] Residual Tobacco user Episodic Active JAVY Community codes; Translations: [facility] unclassified [ Nondependent [address] [place] [address] (1 source.) tobacco use [place] ([address]165) disorder] Disorders of Unspecified Episodic Active HANG GALLEGOS Com munity teeth and jaw disorder of [address] [place] [address] (12 sources.) the teeth and of [facility] supporting [place] ([address]) structures Translations: [ Unspecified dental caries, Unspecified dental caries, Unspecified dental caries] Past or Other Problems Problem Normalized Date of Normalized Normalized Provider Fac ility Classification Problem(s) Problem Problem Problem Sta tus Onset/Resoluti Duration on External Accidents no information no information ABDIAS ARRIAZA Not Available Injury - Place occurring in ([address]) of occurrence other (8 sources.) specified places Translations: [ ACCID IN RECREATION AREA] Residual Acquired Episodic Completed MARI [facility] Via codes; absence of Priya [place] unclassified other organs Hospital - (16 sources.) Translations: [place] [ Family ([address]04) history of diabetes mellitus, Family history of diabetes mellitus, Family history of diabetes mellitus] Other lower Cough Episodic Completed LIBORIO Not Availab le respiratory MD MUNDO (64940) disease (6 sources.) Other Diarrhea, Episodic Completed MARI [facility] Via gastrointestin unspecified Priya [place] al disorders [facility] - (10 sources.) [place] ([address]) Conditions Dizziness and Episodic Completed LIBORIO [facility] Via associated giddiness MD Priya FLOWER with dizziness Hospital - or vertigo (3 [place] sources.) ([address]) Other Elevated Episodic Completed LIBORIO [facility] Via circulatory blood-pressure MD Priya FLOWER disease (6 [place], Hospital - sources.) without [place] diagnosis of ([address]) hypertension External Fever, Episodic Completed MARI Not Available Injury - unspecified MIKI , (18848) Adverse MD effects of medical drugs (1 source.) Fluid and Hypovolemia Episodic Completed Hemant REAL A vailable electrolyte Translations: () disorders (12 [ HYPOVOLEMIA, sources.) DEHYDRATION] Other injuries Injury of face Episodic Completed ABDIAS ARRIAZA Not Available and conditions and neck (39765) due to external causes (2 sources.) NEGATED Internal Episodic Completed WILLIAM PAREDES Not Avai lable no hemorrhoids , (80694) information (2 without sources.) mention of complication Other injuries Knee, leg, Episodic Completed Andrew REAL ot Available and conditions ankle, and () due to foot injury external causes (2 sources.) Spondylosis; Lumbago Episodic Completed no name no informa tion intervertebral disc disorders; other back problems (2 sources.) NEGATED Migraine, no information Completed no name no info rmation no unspecified, information (2 without sources.) mention of intractable migraine without mention of status migrainosus Translations: [ HEADACHE] Nonspecific Other chest Episodic Completed GUANAKO MOHAMUD MD [facility] chest pain (4 pain Priya sources.) [facility] ([address]682) Other upper Other disease Episodic Completed ABDIAS ARRIAZA Not Available respiratory of nasal (25853) disease (1 cavity and source.) sinuses External Other external no information no information ABDIAS MINER Not Available Injury - cause status (49346) Unspecified (9 Translations: sources.) [ ACTIVITIES INVOLVING BASEBALL, OTHER EXTERNAL CAUSE STATUS, ACTIVITIES INVOLVING BASKETBALL] Other injuries Other injury Episodic Completed no name no i nformation and conditions of other sites due to of trunk external causes (2 sources.) External Overexertion no information no information ABDIAS Kurtz Not Available Injury - from sudden (15611) Overexertion strenuous (6 sources.) movement Translations: [ FALL FROM SLIPPING, TRIPPING, OR STUMBLI] Other Pain in limb Episodic Completed MARI BARRERA Not A vailable connective , [place] ([address]) tissue disease (2 sources.) Other Pain in right Episodic Completed MARI [facility] Via connective thigh BRUPriya TY tissue disease [facility] - (7 sources.) [place] ([address]) Other nervous Paresthesia of Episodic Completed MARI [facility] Via system skin BRUPriya TY disorders (7 [facility] - sources.) [place] ([address]) Other Personal Episodic Completed MARI [facility] Via gastrointestin history of Priya [place] al disorders other diseases [facility] - (19 sources.) of the [place] digestive (98616) system Other injuries Shoulder and Episodic Completed no name no i nformation and conditions upper arm due to injury external causes (2 sources.) External cause Striking no information no information YUDI BERGERON DARRYL , Not Available codes: Struck against or MD (22342) by; against (2 struck sources.) accidentally by objects or persons in sports Procedures Procedure Normalized Procedure Procedure Result Performer Facility Date 12-12-2017 Skin test tuberculosis no information no name (no p elvis) [facility] intradermal [facility] (58644) Substance abuse no information no name (no phone) [facility] counseling [facility] (68247) 12-12-2017 no information no information no [facility] (no phone[facility] Immunizations Normalized Immunization Date Notes Care Provider Facili ty Immunization diphtheria, tetanus 12-07-1990 no information no name [facility] toxoids and [facility] acellular pertussis [facility] vaccine (21771) diphtheria, tetanus 10-23-1987 no information no name [facility] toxoids and Center [facility] acellular pertussis [facility] vaccine (57567) diphtheria, tetanus 06-06-1986 no information no name [facility] toxoids and Center [facility] acellular pertussis [facility] vaccine (17292) diphtheria, tetanus 01-03-1986 no information no name [facility] toxoids and Center [facility] acellular pertussis [facility] vaccine (29394) diphtheria, tetanus 1985 no information no name [facility] toxoids and Center [facility] acellular pertussis [facility] vaccine (73691) haemophilus 12-02-1989 no information no name [facility] H ealth influenzae type b [facility] vaccine, [facility] conjugate (14709) hepatitis A and 12-12-2017 - no information HANG GALLEGOS [address] [facility] hepatitis B vaccine 12-12-2017 [facility] (24394) measles, mumps and 12-07-1990 no information no name [facility] rubella virus Center [facility] (11568) measles, mumps and 03-27-1987 no information no name [facility] rubella virus Center [facility] (11433) poliovirus vaccine, 12-07-1990 no information no name [facility] inactivated [facility] (65843) poliovirus vaccine, 10-23-1987 no information no name [facility] inactivated [facility] (34794) poliovirus vaccine, 06-06-1986 no information no name [facility] inactivated [facility] (46943) poliovirus vaccine, 01-03-1986 no information no name [facility] inactivated [facility] (36181) poliovirus vaccine, 1985 no information no name [facility] inactivated [facility] (06797) tetanus and 03-12-2003 no information no name [facility] diphtheria toxoids, [facility] preservative free, (58642) for adult use (5 Lf of tetanus toxoid and 2 Lf of diphtheria toxoid) tetanus toxoid, 12-12-2017 - no information HANG GALLEGOS [address] [facility] reduced diphtheria 12-12-2017 [facility] (77150) acellular pertussis vaccine, adsorbed varicella virus 01-14-2018 - no information NIDA MENDOZA 51953 [facility] vaccine 01-14-2018 [facility] (16547) varicella virus 12-12-2017 - no information HANG GALLEGOS 39162 [facility] vaccine 12-12-2017 [facility] (71150) no information 01-14-2018 no information NIDA MENDOZA [address] [facility] (25877) no information 12-12-2017 no information HANG GALLEGOS [address] [facility] (41451) no information 12-12-2017 no information HANG GALLEGOS [address] [facility] (99154) Results Test Name Value Interpretation Reference Range Date Time Fa cility (Normalized) (Normalized) (Medline Reference) No panel information on null Date injected 12/12/17 (no code) [facility] (75058) Date read 03/2019~BRANDAN (no code) [facility] RN~12/14/17 [facility] (15302) Lot # [id number] (no code) [facility] (18565) Read by no information (no code) [facility] (29849) Site LFA (no code) [facility] (13461) Time Injected 1515 (no code) [facility] (81201) Time Read 1517 (no code) [facility] (44251) Vital Signs Vital Sign Value Interpretation Reference Date Time Care Prov ider Facility (Normalized) (Normalized) Range BMI (Body Mass 36.81 kg/m2 (no code) 15 - 25 kg/m2 01-14-2018 MATILDE MENDOZA Community Index) 14:10-[address] [place] [address] (11849) BMI (Body Mass 35.8 kg/m2 (no code) 15 - 25 kg/m2 12-12-2017 TAMMY GALLEGOS Community Index) 16:00-[address] [place] [address] (19220) Body height 177.8 cm (no code) cm 08-23-2013 JAVY Com munity 13:29-[address] ([address]606) Body 98.2 [degF] (no code) 97.8 - 99.0 12-12-2017 HANG BAPTISTE Community Temperature [degF] 16:00-[address] [place] [address] (71301) Body 98.6 [degF] (no code) 97.8 - 99.0 07-03-2014 MARKIE Community Temperature [degF] 11:56-[address] [place] [address] (77202) Body 99.6 [degF] (no code) 97.8 - 99.0 08-23-2013 JAVY [facility] temperature [degF] 13:29-[address] ([address]) Body weight 100.84 kg (no code) kg 07-03-2014 MARKIE Co mmunity 11:56-[address] ([address]807) Body weight 90.58 kg (no code) kg 08-23-2013 JAVY Com munity 13:29-[address] (53336) Height 177.8 cm (no code) cm 01-14-2018 NIDA MENDOZA Comm unity 14:10-[address] [place] [address] (31322) Height 177.8 cm (no code) cm 12-12-2017 HANG GALLEGOS ommunity 16:000400 [address] [place] [address] (82683) Height 177.8 cm (no code) cm 07-03-2014 MARKIE Commun ity 11:56-[address] ([address]763) Weight 116.39 kg (no code) kg 01-14-2018 NIDA MENDOZA Com munity 14:10-[address] [place] [address] (96179) Weight 113.17 kg (no code) kg 12-12-2017 HANG GALLEGOS [facility] 16:000400 [address] [place] [address] (40942) Interventions No Information Plan of Treatment The data below is from unstructured sources Discharge Date 11/15/16 6:35am Disposition 01 HOME, SELF-CARE Condition at Discharge Stable Instructions/Education Provided Radi culopathy Paresthesias (DC) Prescriptions See Medication Section Referrals NO,LOCAL PHYSICIAN Order Date: Primary Care Physician Additional Instructions/Education Th e exact cause of your paresthesias uncertain but may be related to problems with your lower back. You may take ibuprofen up to 800 mg 3 times daily for back pain and relief of inflammation. If you're not improving over the next couple of days consider completing the steroids as prescribed. Follow-up with your primary care provider if not improving over the next couple of days. Return to the ER if symptoms worsen, especially if you develop changes with your bowels or bladder or develop weakness in your legs. All discharge instructions reviewed with patient and/or family. Voiced understanding. Discharge Date 02/28/17 5:23am Disposition 01 HOME, SELF-CARE Condition at Discharge Improved Instructions/Education Provided Aparna miguel Gastroenteritis Prescriptions See Medication Section Referrals NO,LOCAL PHYSICIAN Order Date: Primary Care Physician Additional Instructions/Education Dr braden plenty of clear liquids. Gradually advance your diet with small quantities of bland food as tolerated. Dissolve Zofran (ondansetron) under the tongue every 4 hours as needed for nausea and vomiting. Dissolve Levsin (hyoscyamine) under the tongue every 4 h ours as needed for abdominal cramping and diarrhea. Return to care if symptoms worsen or are not improving. You may use Tylenol (acetaminophen) up to 1000 mg every 6 hours as needed for pain, fever, or chills. No milk products until diarrhea has resolved for at least 24 hours. Follow-up with your primary care provider this week. Please call for an appointment this morning. All discharge instructions reviewed with patient and/or family. Voiced understanding. Discharge Date 12/16/17 1:10am Disposition 07 AGAINST MEDICAL ADVIC E Condition at Discharge Unchanged Prescriptions See Medication Section Referrals GUANAKO MOHAMUD MD Order Date: Primary Care Physician Address: [address] [place] [address] NO,LOCAL PHYSICIAN Order Date: Primary Care Physician Goals No Information Social History The data below is from unstructured sources History Response Recorde d Date/Time Alcohol Use Regular Use 11/18/12 11:18am Recreational Drug Use Y THC 11/18/12 11:18am Recent Foreign Travel N 11/18/12 10:46am Recent Infectious Disease Exposure Y 11/18/12 11:18am Hospitalization with Isolation Denies 11/18/12 10:46am History Response Recorde d Date/Time Alcohol Use Occasionally Uses 07/05/12 8:25am Recreational Drug Use N 07/05/12 8:25am Recent Foreign Travel N 07/05/12 7:53am Recent Infectious Disease Exposure N 07/05/12 8:25am Hospitalization with Isolation Denies 08/28/12 1:09pm Functional Status The data below is from unstructured sourcesNo functional status results.No functional status results.No functional status results.No functional status results.No functional status results.No functional status information available.No functional status information available.No functional status information available.No functional status information available.No functional status information available.No functional status information availab le. Mental Status No Information Encounters Encounter Normalized Encounter Encounter Diagnosis Care Provi pino Organization Date Type 12-12-2017 (ACUTE) Acute Visit Encounter for HANG GALLEGOS (no [facility] [place] - screening for phone) (no phone) 12-12-2017 respiratory - tuberculosis 12-12-2017 01-14-2018 (imm/inj) Encounter for NIDA MENDOZA (no phone[facility] Immun[facility]injection immunization CARE (n o phone) 01-14-2018 - 01-14-2018 07-03-2014 [facility] [place] no information MARKIE MEDINA SON (no [facility] [place] - phone) Doctor (no phone) 07-03-2014 Migration (no phone) - MARKIE MANCILLA (no 07-03-2014 phone) Doctor Migration (no phone) MARKIE MANCILLA (no phone) Doctor Migration (no phone) 02-20-2014 [facility] [place] no information Doctor Migrati on (no [facility] [place] - phone) (no phone) 02-20-2014 - 02-20-2014 02-18-2014 [facility] [place] no information Doctor Migrati on (no [facility] [place] - phone) (no phone) 02-18-2014 - 02-18-2014 08-23-2013 [facility] [place] no information JAVY Kellogg (no [facility] [place] - phone) Doctor (no phone) 08-23-2013 Migration (no phone) - JAVY zzSANCHEZ (no 08-23-2013 phone) Doctor Migration (no phone) JAVY zzSANCHEZ (no phone) Doctor Migration (no phone) 08-21-2012 [facility] [place] no information Doctor Migrati on (no [facility] [place] - phone) (no phone) 08-21-2012 - 08-21-2012 08-14-2012 [facility] [place] no information Doctor Migrati on (no [facility] [place] - phone) (no phone) 08-14-2012 - 08-14-2012 06-19-2012 [facility] [place] no information GLORIA SANDOVAL (no [facility] [place] - phone) (no phone) 06-19-2012 - 06-19-2012 06-14-2012 [facility] [place] no information GLORIA JAIME (no [facility] [place] - phone) (no phone) 06-14-2012 - 06-14-2012 06-13-2012 [facility] [place] HEALTH no information GLORIA JAIME (no [facility] [place] - phone) (no phone) 06-13-2012 - 06-13-2012 12-06-2011 [facility] [place] no information GLORIA JAIME (no [facility] [place] - phone) (no phone) 12-06-2011 - 12-06-2011 12-02-2011 [facility] [place] no information GLORIA JAIME (no [facility] [place] - phone) (no phone) 12-02-2011 - 12-02-2011 06-29-2011 [facility] [place] no information Doctor Migrati on (no [facility] [place] - phone) (no phone) 06-29-2011 - 06-29-2011 12-16-2017 Emergency department no information LIBORIO ALVAREZ [facility] no organization name - patient visit Work Phone: (no phone) 12-16-2017 12-15-2017 Emergency department no information no name (no rajni ne) no organization name - patient visit (no phone) 12-15-2017 02-27-2017 Emergency department no information no name (no rajni ne) no organization name - patient visit (no phone) 02-28-2017 11-15-2016 Emergency department no information no name (no rajni ne) no organization name - patient visit (no phone) 11-15-2016 07-19-2013 Emergency department no information no name (no rajni ne) no organization name - patient visit (no phone) 07-19-2013 07-01-2013 Emergency department no information no name (no rajni ne) no organization name - patient visit (no phone) 07-01-2013 06-09-2013 Emergency department no information no name (no rajni ne) no organization name - patient visit (no phone) 06-09-2013 05-24-2013 Emergency department no information no name (no rajni ne) no organization name - patient visit (no phone) 05-24-2013 05-05-2013 Emergency department no information no name (no rajni ne) no organization name - patient visit (no phone) 05-05-2013 NEGATED Emergency department no information no name (no rajni ne) no organization name 04-08-2013 patient visit (no phone) - 04-08-2013 06-16-2012 Emergency department no information no name (no rajni ne) no organization name - patient visit (no phone) 06-16-2012 05-05-2012 Emergency department no information no name (no rajni ne) no organization name - patient visit (no phone) 05-05-2012 05-03-2012 Emergency department no information no name (no rajni ne) no organization name - patient visit (no phone) 05-03-2012 01-03-2012 Emergency department no information no name (no rajni ne) no organization name - patient visit (no phone) 01-04-2012 12-12-2017 Patient encounter no information no name (no phone) no organization name (no phone) NEGATED Patient encounter no information no name (no phone) no organization name 09-01-2017 (no phone) NEGATED Patient encounter no information no name (no phone) no organization name 08-28-2012 (no phone) - 08-28-2012 2012 Patient encounter no information no name (no phone) no organization name (no phone) NEGATED Patient encounter no information no name (no phone) no organization name 07-20-2010 (no phone) NEGATED Patient encounter no information no name (no phone) no organization name (no phone) 01-02-2019 Patient encounter no information no name (no phone) no organization name - procedure (no phone) 01-02-2019 01-02-2019 Patient encounter no information no name (no phone) no organization name - procedure (no phone) 01-02-2019 10-05-2018 Patient encounter no information no name (no phone) no organization name procedure (no phone) 10-05-2018 Patient encounter no information no name (no phone) no organization name procedure (no phone) 11-15-2016 Patient encounter no information no name (no phone) no organization name procedure (no phone) 02-18-2014 Patient encounter no information no name (no phone) no organization name procedure (no phone) 01-13-2018 Telephone encounter no information HANG GALLEGOS (n o [facility] [place] - phone) (no phone) 01-13-2018 - 01-13-2018 12-28-2017 Telephone encounter no information HANG GALLEGOS (n o [facility] - phone) (no phone) 12-28-2017 - 12-28-2017 07-30-2014 Telephone encounter no information [facility] 07-30-2014 - 07-30-2014 07-29-2014 Telephone encounter no information [facility] (no [facility]) 07-29-2014 - 07-29-2014 08-17-2012 Telephone encounter no information Doctor Migration (no [facility] [place] - phone) (no phone) 08-17-2012 - 08-17-2012 08-15-2012 Telephone encounter no information Doctor Migration (no [facility] - phone) (no phone) 08-15-2012 - 08-15-2012 no information Pre-operative no name (no phone) no organiza tion name examination, (no phone) unspecified Medical Equipment No Information Payers Normalized Payer Value Unknown [id number] ([id number]) History general Narrative - Reported Note Type Note Facility History general Narrative - Reported Type Medical HTN History Surgical tonsils removal 5 years History old [facility] ([id number]) Advance Directives Directive Response Recor ded Date Advance Directives N 06/28 10:46am Health Care Power of Computer Technology Teacher N 11/18/12 10:46am Organ Donor N 11/18/12 1 0:46am Directive Response Recor ded Date/Time Advance Directives No 1:27pm Health Care Power of Computer Technology Teacher No 04/20/14 1:27pm Organ Donor No 04/20/14 1:27pm Resuscitation Status Full Code 04/20/14 1:27pm Directive Response Recor ded Date/Time Advance Directives No 2:08am Health Care Power of Computer Technology Teacher No 01/02/14 2:08am Organ Donor No 01/02/14 2:08am Resuscitation Status Full Code 01/02/14 2:08am Directive Response Recor ded Date/Time Advance Directives No 10:37am Health Care Power of Computer Technology Teacher No 11/18/13 10:37am Organ Donor No 11/18/13 10:37am Resuscitation Status Full Code 11/18/13 10:37am Directive Response Recor ded Date Advance Directives N 10:05am Health Care Power of Computer Technology Teacher N 08/28/12 10:05am Organ Donor N 08/28/12 1 0:05am Directive Response Recor ded Date/Time Advance Directives No 5:07am Health Care Power of Computer Technology Teacher No 11/15/16 5:07am Organ Donor No 11/15/16 5:07am Resuscitation Status Full Code 11/15/16 5:07am Directive Response Recor ded Date/Time Advance Directives No 3:47am Health Care Power of Computer Technology Teacher No 02/28/17 3:47am Organ Donor No 02/28/17 3:47am Resuscitation Status Full Code 02/28/17 3:47am Directive Response Recor ded Date/Time Advance Directives No 12:31am Health Care Power of Computer Technology Teacher No 12/16/17 12:31am Organ Donor No 12/16/17 12:31am Resuscitation Status Full Code 12/16/17 12:31am Discharge Instructions No hospital discharge instructions.No hospital discharge instructions.No hospital discharge instructions.No hospital discharge instruction information available.No hospital discharge instruction information available.No hospital discharge instruction information available. Additional Source Comments This clinical document has been generated using [employer] software that has been certified by the Office of the National Coordinator for Health Information Technology (ONC 15.99.04.3023.Diam.31.00.0.933334) and the National Committee for Long Wall Shear Operator (NCQA, as an eMeasure certified technology). FOR RECORDS PERTAINING TO PATIENTS WHO ARE OR HAVE BEEN ENROLLED IN A CHEMICAL D EPENDENCY/SUBSTANCE ABUSE PROGRAM, SOME INFORMATION MAY BE OMITTED. This clinica l summary was aggregated from multiple sources. Caution should be exercised in using it in the provision of clinical care. This summary normalizes information from multiple sources, and as a consequence, information in this document may ma terially change the coding, format and clinical context of patient data. In tesha tion, data may be omitted in some cases. CLINICAL DECISIONS SHOULD BE BASED ON T HE PRIMARY CLINICAL RECORDS. [employer]. provides no warranty or guara ntee of the accuracy or completeness of information in this document.The followi ng information is based on time limited clinical information UNRECOGNIZED CONTENT PROVIDED BELOW FOR UNRECOGNIZED SECTION REASON FOR VISIT Requests return callRoutine nurse callImmunization per pts request. [email or web address] [id number] UNRECOGNIZED CONTENT PROVIDED BELOW FOR UNRECOGNIZED SECTION MEDICAL (GENERAL) HISTORY Type Description Date Medical History HTN Surgical History tonsils removal 5 years old
--- OUTSIDE RECORDS SUMMARY | 2019-07-28 10:05 | XMS REPORT ---
Author Author Jose MENDOZA [facility] Address [address] [place] [address] Care Team Providers Care Munitions Handler Supervisor Name Role Phone KELLYSUSANA Unavailable PROBLEMS Type Condition ICD9-CM Code SCH76-EU Code Onset Dates Condition S tatus SNOMED Code Problem Other malaise and fatigue 780.79 Acti ve 348431986 Problem Blood in stool 578.1 Active 87660 9008 Problem Pain in soft tissues of limb 729.5 A ctive 03505531 Problem Nondependent tobacco use disorder 305.1 Active 195266088 Problem Unspecified otalgia 388.70 Active 51838950 Problem Esophageal reflux 530.81 Active 24 6436099 Problem Diaphragmatic hernia without mention of obstruction or gangrene 553.3 Active 12978664 Problem Acute pharyngitis 462 Active 36 0178165 Problem Unspecified dental caries 521.00 Acti ve 86040267 Problem Elevated blood pressure reading without diagnosi s of hypertension 796.2 Active 287570714 Problem Polyuria 788.42 Active 23048858 Problem Counseling on substance use and abuse V65.42 Active 945775328 Problem Cough 786.2 Active 80840128 Problem Family history of diabetes mellitus V18.0 Active 705311805 Problem Polydipsia 783.5 Active [id number] ALLERGIES No Known Allergies ENCOUNTERS Encounter Location Date Diagnosis [facility] [address] [facility] [id number] [address] [place] [phone] Dec, Encounter for immunization Z 23 [facility] [address] [facility] [id number] [address] [place] [phone] Dec, [facility] [address] [facility] [id number] [address] [place] [phone] Dec, [facility] [address] [facility] [id number] [address] [place] [phone] Nov, Tuberculosis screening Z11.1 ; School physical exam Z02.0 ; Need for hepatitis B screening test Z11.59 and Encounter for immunization Z23 [facility] [address] [id number] [address] [place] [phone] 14 Jul, 2014 [facility] [address] [id number] [address] [place] [phone] Jul, [facility] [address] [id number] [address] [place] [phone] Jun, [facility] [address] [id number] [address] [place] [phone] Jun, [facility] [address] [id number] [address] [place] [phone] Feb, [facility] [address] [id number] [address] [place] [phone] Feb, [facility] [address] [id number] [address] [place] [phone] Feb, [facility] [address] [id number] [address] [place] [phone] Feb, [facility] [address] [id number] [address] [place] [phone] August, [facility] [address] [id number] [address] [place] [phone] August, [facility] [address] [id number] [address] [place] [phone] August, [facility] [address] [id number] [address] [place] [phone] August, [facility] [address] [id number] [address] [place] [phone] Jul, [facility] [address] [id number] [address] [place] [phone] Jul, [facility] [address] [id number] [address] [place] [phone] Jun, [facility] [address] [facility] [id number] [address] [place] [phone] May, [facility] [address] [facility] [id number] [address] [place] [phone] May, [facility] [address] [facility] [id number] [address] [place] [phone] Nov, [facility] [address] [facility] [id number] [address] [place] [phone] Nov, [facility] [address] [facility] [id number] [address] [place] [phone] Jun, [facility] [address] [facility] [id number] [address] [place] [phone] Jun, IMMUNIZATIONS Vaccine Route Administration Date Status VARICELLA SC Subcutaneous Jan 14, 2018 Administered SOCIAL HISTORY Never Assessed REASON FOR VISIT Immunization per pts request. [email or web address] PLAN OF CARE VITAL SIGNS Height 70 in 2018-01-14 Weight 256.6 lbs 2018-01-14 BMI 36.81 kg/m2 2018-01-14 MEDICATIONS Medication Instructions Dosage Frequency Start Date End Date Duration S tatus Lisinopril 5 MG Orally Once a day 1 tablet 24h 30 da y(s) Active RESULTS No Results PROCEDURES Procedure Date Ordered Result Body Site VARICELLA Jan 14, 2018 SINGLE IMMUNIZATION ADMIN Jan 14, 2018 INSTRUCTIONS MEDICATIONS ADMINISTERED No Known Medications MEDICAL (GENERAL) HISTORY Type Description Date Medical History HTN Surgical History tonsils removal 5 years old
--- OUTSIDE RECORDS SUMMARY | 2019-07-28 10:05 | XMS REPORT ---
Author Author Jose GALLEGOS Organization [facility] Address [address] [place] [address] Care Team Providers Care Personal Property Assessor Name Role Phone HNAG GALLEGOS Unavailable PROBLEMS Type Condition ICD9-CM Code QUA96-OG Code Onset Dates Condition S tatus SNOMED Code Problem Other malaise and fatigue 780.79 Acti ve 223076948 Problem Blood in stool 578.1 Active 97885 9008 Problem Pain in soft tissues of limb 729.5 A ctive 30894805 Problem Nondependent tobacco use disorder 305.1 Active 498063938 Problem Unspecified otalgia 388.70 Active 20870617 Problem Esophageal reflux 530.81 Active 24 8492306 Problem Diaphragmatic hernia without mention of obstruction or gangrene 553.3 Active 94491210 Problem Acute pharyngitis 462 Active 36 0256047 Problem Unspecified dental caries 521.00 Acti ve 34966209 Problem Elevated blood pressure reading without diagnosi s of hypertension 796.2 Active 694471304 Problem Polyuria 788.42 Active 53627296 Problem Counseling on substance use and abuse V65.42 Active 644907720 Problem Cough 786.2 Active 28110162 Problem Family history of diabetes mellitus V18.0 Active 085607341 Problem Polydipsia 783.5 Active 06108176 ALLERGIES No Information ENCOUNTERS Encounter Location Date Diagnosis [facility] [address] [facility] [id number] [address] [place] [phone] Dec, Encounter for immunization Z 23 [facility] [address] [facility] [id number] [address] [place] [phone] Dec, [facility] [address] [facility] [id number] [address] [place] [phone] Dec, [facility] [address] [facility] [id number] [address] [place] [phone] Nov, Tuberculosis screening Z11.1 ; School physical exam Z02.0 ; Need for hepatitis B screening test Z11.59 and Encounter for immunization Z23 [facility] [address] [id number] [address] [place] [phone] [address], [address] [facility] [address] [id number] [address] [place] [phone] Jul, [facility] [address] [id number] [address] [place] [phone] Jun, [facility] [address] [id number] [address] [place] [phone] Jun, [facility] [address] [id number] [address] [place] [phone] Feb, [facility] [address] [id number] [address] [place] [phone] Feb, [facility] [address] [id number] [address] [place] [phone] Feb, [facility] [address] [id number] [address] [place] [phone] Feb, [facility] [address] [id number] [address] [place] [phone] August, [facility] [address] [id number] [address] [place] [phone] August, [facility] [address] [id number] [address] [place] [phone] August, [facility] [address] [id number] [address] [place] [phone] August, [facility] [address] [id number] [address] [place] [phone] Jul, [facility] [address] [id number] [address] [place] [phone] Jul, [facility] [address] [id number] [address] [place] [phone] Jun, [facility] [address] [facility] [id number] [address] [place] [phone] May, [facility] [address] [facility] [id number] [address] [place] [phone] May, [facility] [address] [facility] [id number] [address] [place] [phone] Nov, [facility] [address] [facility] [id number] [address] [place] [phone] Nov, [facility] [address] [facility] [id number] [address] [place] [phone] Jun, [facility] [address] [facility] [id number] [address] [place] [phone] Jun, IMMUNIZATIONS No Known Immunizations SOCIAL HISTORY Never Assessed REASON FOR VISIT Routine nurse call PLAN OF CARE VITAL SIGNS MEDICATIONS Unknown Medications RESULTS No Results PROCEDURES No Known procedures INSTRUCTIONS MEDICATIONS ADMINISTERED No Known Medications MEDICAL (GENERAL) HISTORY Type Description Date Medical History HTN Surgical History tonsils removal 5 years old
--- OUTSIDE RECORDS SUMMARY | 2019-07-28 10:05 | XMS REPORT ---
Author Author Jose SANDOVAL Organization [facility] [place] Address [address] [place] [address] Care Team Providers Care Land Leveler Name Role Phone GLORIA SANDOVAL Unavailable PROBLEMS Type Condition ICD9-CM Code [id number] Code Onset Dates Condition S tatus SNOMED Code Problem Family history of diabetes mellitus V18.0 Active 975187489 Problem Counseling on substance use and abuse V65.42 Active 965394149 Problem Polyuria 788.42 Active 69685867 Problem Elevated blood pressure reading without diagnosi s of hypertension 796.2 Active 494906840 Problem Other malaise and fatigue 780.79 Acti ve 681607441 Problem Pain in soft tissues of limb 729.5 A ctive 84506149 Problem Blood in stool 578.1 Active 77022 9008 Problem Unspecified otalgia 388.70 Active 82792308 Problem Polydipsia 783.5 Active 31539149 Problem Nondependent tobacco use disorder 305.1 Active 284240429 Problem Cough 786.2 Active 02427224 Problem Diaphragmatic hernia without mention of obstruction or gangrene 553.3 Active 97326057 Problem Esophageal reflux 530.81 Active 24 0357676 Problem Unspecified dental caries 521.00 Acti ve 22479285 Problem Acute pharyngitis 462 Active 36 [id number] ALLERGIES No Information ENCOUNTERS Encounter Location Date Diagnosis [facility] [address] [facility] [id number] [address] [place] [phone] Dec, Encounter for immunization Z 23 [facility] [place] [address] [facility] [id number] [address] [place] [address] Dec, [facility] [place] [address] [facility] [id number] [address] [place] [address] Dec, [facility] [place] [address] [facility] [id number] [address] [place] [phone] Nov, Tuberculosis screening Z11.1 ; School physical exam Z02.0 ; Need for hepatitis B screening test Z11.59 and Encounter for immunization Z23 [facility] [place] [address] [id number] [address] [place] [phone] 14 Jul, 2014 [facility] [place] [address] [id number] [address] [place] [address] Jul, [facility] [place] [address] [id number] [address] [place] [phone] Jun, [facility] [place] [address] [id number] [address] [place] [phone] Jun, [facility] [place] [address] [id number] [address] [place] [phone] Feb, [facility] [place] [address] [id number] [address] [place] [phone] Feb, [facility] [place] [address] [id number] [address] [place] [phone] Feb, [facility] [place] [address] [id number] [address] [place] [phone] Feb, [facility] [place] [address] [id number] [address] [place] [phone] August, [facility] [place] [address] [id number] [address] [place] [phone] August, [facility] [place] [address] [id number] [address] [place] [phone] August, [facility] [place] [address] [id number] [address] [place] [phone] August, [facility] [place] [address] [id number] [address] [place] [phone] Jul, [facility] [place] [address] [id number] [address] [place] [phone] Jul, [facility] [place] [address] [id number] [address] [place] [phone] Jun, [facility] [place] [address] [facility] [id number] [address] [place] [phone] May, [facility] [place] [address] [facility] [id number] [address] [place] [phone] May, [facility] [place] [address] [facility] [id number] [address] [place] [phone] Nov, [facility] [place] [address] [facility] [id number] [address] [place] [phone] Nov, [facility] [place] [address] [facility] [id number] [address] [place] [phone] Jun, [facility] [place] [address] [facility] [id number] [address] [place] [phone] Jun, IMMUNIZATIONS No Known Immunizations SOCIAL HISTORY Never Assessed REASON FOR VISIT PLAN OF CARE VITAL SIGNS MEDICATIONS Unknown Medications RESULTS No Results PROCEDURES No Known procedures INSTRUCTIONS MEDICATIONS ADMINISTERED No Known Medications MEDICAL (GENERAL) HISTORY Type Description Date Medical History HTN Surgical History tonsils removal 5 years old
--- OUTSIDE RECORDS SUMMARY | 2019-07-28 10:05 | XMS REPORT ---
Author Author Jose GALLEGOS Organization [facility] Address [address] [place] [address] Care Team Providers Care Halfway House Counselor Name Role Phone HANG GALLEGOS Unavailable PROBLEMS Type Condition ICD9-CM Code [id number] Code Onset Dates Condition S tatus SNOMED Code Problem Other malaise and fatigue 780.79 Acti ve 422663467 Problem Blood in stool 578.1 Active 20258 9008 Problem Pain in soft tissues of limb 729.5 A ctive 18028781 Problem Nondependent tobacco use disorder 305.1 Active 684877938 Problem Unspecified otalgia 388.70 Active 34156521 Problem Esophageal reflux 530.81 Active 24 1614881 Problem Diaphragmatic hernia without mention of obstruction or gangrene 553.3 Active 69081810 Problem Acute pharyngitis 462 Active 36 9624977 Problem Unspecified dental caries 521.00 Acti ve 31429819 Problem Elevated blood pressure reading without diagnosi s of hypertension 796.2 Active 293781144 Problem Polyuria 788.42 Active 98258364 Problem Counseling on substance use and abuse V65.42 Active 121093911 Problem Cough 786.2 Active 80693275 Problem Family history of diabetes mellitus V18.0 Active 037877026 Problem Polydipsia 783.5 Active 88549280 ALLERGIES No Information ENCOUNTERS Encounter Location Date Diagnosis [facility] [address] [facility] [id number] [address] [place] [phone] Dec, Encounter for immunization Z 23 [facility] [address] [facility] [id number] [address] [place] [phone] Dec, [facility] [address] [facility] [id number] [address] [place] [phone] Dec, [facility] [address] [facility] [id number] [address] [place] [phone] Nov, Tuberculosis screening Z11.1 ; School physical exam Z02.0 ; Need for hepatitis B screening test Z11.59 and Encounter for immunization Z23 [facility] [address] [id number] [address] [place] [phone] 14 Jul, 2014 [facility] [address] [id number] [address] [place] [phone] Jul, [facility] [address] [id number] [address] [place] [phone] Jun, [facility] [address] [id number] [address] [place] [phone] Jun, [facility] [address] [id number] [address] [place] [phone] Feb, [facility] [address] [id number] [address] [place] [phone] Feb, [facility] [address] [id number] [address] [place] [phone] Feb, [facility] [address] [id number] [address] [place] [phone] Feb, [facility] [address] [id number] [address] [place] [phone] August, [facility] [address] [id number] [address] [place] [phone] August, [facility] [address] [id number] [address] [place] [phone] August, [facility] [address] [id number] [address] [place] [address] August, [facility] [address] [id number] [address] [place] [phone] Jul, [facility] [address] [id number] [address] [place] [phone] Jul, [facility] [address] [id number] [address] [place] [phone] Jun, [facility] [address] [facility] [id number] [address] [place] [phone] May, [facility] [address] [facility] [id number] [address] [place] [phone] May, [facility] [address] [facility] [id number] [address] [place] [phone] Nov, [facility] [address] [facility] [id number] [address] [place] [phone] Nov, [facility] [address] [facility] [id number] [address] [place] [phone] Jun, [facility] [address] [facility] [id number] [address] [place] [phone] Jun, IMMUNIZATIONS No Known Immunizations SOCIAL HISTORY Never Assessed REASON FOR VISIT Requests return call PLAN OF CARE VITAL SIGNS MEDICATIONS Unknown Medications RESULTS No Results PROCEDURES No Known procedures INSTRUCTIONS MEDICATIONS ADMINISTERED No Known Medications MEDICAL (GENERAL) HISTORY Type Description Date Medical History HTN Surgical History tonsils removal 5 years old
--- OUTSIDE RECORDS SUMMARY | 2019-07-28 10:05 | XMS REPORT ---
Author Author Jose Abbasi Doctor Organization [facility] Address Unknown Phone Unavailable Care Team Providers Care Fine Arts Model Name Role Phone Migration, Doctor Unavailable Unavailable PROBLEMS Type Condition ICD9-CM Code TAZ72-SD Code Onset Dates Condition S tatus SNOMED Code Problem Family history of diabetes mellitus V18.0 Active 376217178 Problem Counseling on substance use and abuse V65.42 Active 610755701 Problem Polyuria 788.42 Active 69075017 Problem Elevated blood pressure reading without diagnosi s of hypertension 796.2 Active 674015379 Problem Other malaise and fatigue 780.79 Acti ve 898595578 Problem Pain in soft tissues of limb 729.5 A ctive 44776179 Problem Blood in stool 578.1 Active 42976 9008 Problem Unspecified otalgia 388.70 Active 37286017 Problem Polydipsia 783.5 Active 81410862 Problem Nondependent tobacco use disorder 305.1 Active 871875480 Problem Cough 786.2 Active 92596011 Problem Diaphragmatic hernia without mention of obstruction or gangrene 553.3 Active 42077041 Problem Esophageal reflux 530.81 Active 24 2248980 Problem Unspecified dental caries 521.00 Acti ve 82254715 Problem Acute pharyngitis 462 Active 36 5529045 ALLERGIES No Information ENCOUNTERS Encounter Location Date Diagnosis [facility] [address] [facility] [id number] [address] [place] [phone] Dec, Encounter for immunization Z 23 [facility] [address] [facility] [id number] [address] [place] [phone] Dec, [facility] [address] [facility] [id number] [address] [place] [phone] Dec, [facility] [address] [facility] [id number] [address] [place] [phone] Nov, Tuberculosis screening Z11.1 ; School physical exam Z02.0 ; Need for hepatitis B screening test Z11.59 and Encounter for immunization Z23 [facility] [address] [id number] [address] [place] [address], [place] [address] 14 Jul, 2014 [facility] [address] [id number] [address] [place] [address], [place] [address] Jul, [facility] [address] [id number] [address] [place] [address], [place] [address] Jun, [facility] [address] [id number] [address] [place] [address], [place] [address] Jun, [facility] [address] [id number] [address] [place] [address], [place] [address] Feb, [facility] [address] [id number] [address] [place] [address], [place] [address] Feb, [facility] [address] [id number] [address] [place] [address], [place] [address] Feb, [facility] [address] [id number] [address] [place] [phone] Feb, [facility] [address] [id number] [address] [place] [address], [place] [address] August, [facility] [address] [id number] [address] [place] [phone] August, [facility] [address] [id number] [address] [place] [phone] August, [facility] [address] [id number] [address] [place] [phone] August, [facility] [address] [id number] [address] [place] [address], [place] [address] Jul, [facility] [address] [id number] [address] [place] [phone] Jul, [facility] [address] [id number] [address] [place] [phone] Jun, [facility] [address] [id number] [address] [place] [phone] May, [facility] [address] [facility] [id number] [address] [place] [phone] May, [facility] [address] [facility] [id number] [address] [place] [phone] Nov, [facility] [address] [facility] [id number] [address] [place] [phone] Nov, [facility] [address] [facility] [id number] [address] [place] [phone] Jun, [facility] [address] [facility] [id number] [address] [place] [phone] Jun, IMMUNIZATIONS No Known Immunizations SOCIAL HISTORY Never Assessed REASON FOR VISIT [place] [place] CARE VITAL SIGNS MEDICATIONS Unknown Medications RESULTS No Results PROCEDURES No Known procedures INSTRUCTIONS MEDICATIONS ADMINISTERED No Known Medications MEDICAL (GENERAL) HISTORY Type Description Date Medical History HTN Surgical History tonsils removal 5 years old
--- OUTSIDE RECORDS SUMMARY | 2019-07-28 10:05 | XMS REPORT ---
Author Author Jose Abbasi Doctor Organization [facility] Address Unknown Phone Unavailable Care Team Providers Care Shell Grader Name Role Phone Migration, Doctor Unavailable Unavailable PROBLEMS Type Condition ICD9-CM Code NVY04-EW Code Onset Dates Condition S tatus SNOMED Code Problem Family history of diabetes mellitus V18.0 Active 349504086 Problem Counseling on substance use and abuse V65.42 Active 949953328 Problem Polyuria 788.42 Active 41877776 Problem Elevated blood pressure reading without diagnosi s of hypertension 796.2 Active 210474127 Problem Other malaise and fatigue 780.79 Acti ve 730694322 Problem Pain in soft tissues of limb 729.5 A ctive 85113825 Problem Blood in stool 578.1 Active 72135 9008 Problem Unspecified otalgia 388.70 Active 53054389 Problem Polydipsia 783.5 Active 70375813 Problem Nondependent tobacco use 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 [id number] [address] [place] [phone] Dec, Encounter for immunization Z 23 [facility] [address] [facility] [id number] [address] [place] [phone] Dec, [facility] [address] [facility] [id number] [address] [place] [phone] Dec, [facility] [address] [facility] [id number] [address] [place] [phone] Nov, Tuberculosis screening Z11.1 ; School physical exam Z02.0 ; Need for hepatitis B screening test Z11.59 and Encounter for immunization Z23 [facility] [address] [id number] [address] [place] [address], [place] [phone] 14 Jul, 2014 [facility] [address] [id number] [address] [place] [address], [place] [phone] Jul, [facility] [address] [id number] [address] [place] [address], [place] [phone] Jun, [facility] [address] [id number] [address] [place] [address], [place] [phone] Jun, [facility] [address] [id number] [address] [place] [address], [place] [phone] Feb, [facility] [address] [id number] [address] [place] [address], [place] [phone] Feb, [facility] [address] [id number] [address] [place] [address], [place] [address] Feb, [facility] [address] [id number] [address] [place] [phone] Feb, [facility] [address] [id number] [address] [place] [address], [place] [phone] August, [facility] [address] [id number] [address] [place] [phone] August, [facility] [address] [id number] [address] [place] [phone] August, [facility] [address] [id number] [address] [place] [phone] August, [facility] [address] [id number] [address] [place] [address], [place] [phone] Jul, [facility] [address] [id number] [address] [place] [phone] Jul, [facility] [address] [id number] [address] [place] [phone] Jun, [facility] [address] [id number] [address] [place] [phone] May, [facility] [address] [facility] [id number] [address] [place] [phone] May, [facility] [address] [facility] [id number] [address] [place] [phone] Nov, [facility] [address] [facility] [id number] [address] [place] [phone] Nov, [facility] [address] [facility] [id number] [address] [place] [phone] Jun, [facility] [address] [facility] [id number] [address] [place] [phone] Jun, IMMUNIZATIONS No Known Immunizations SOCIAL HISTORY Never Assessed REASON FOR VISIT [place] [place] VITAL SIGNS MEDICATIONS Unknown Medications RESULTS No Results PROCEDURES No Known procedures INSTRUCTIONS MEDICATIONS ADMINISTERED No Known Medications MEDICAL (GENERAL) HISTORY Type Description Date Medical History HTN Surgical History tonsils removal 5 years old
--- OUTSIDE RECORDS SUMMARY | 2019-07-28 10:05 | XMS REPORT ---
Author Author Jose GALLEGOS [facility] Address [address] [place] [address] Care Team Providers Care Diesel Roller Operator Name Role Phone HANG GALLEGOS Unavailable PROBLEMS ALLERGIES No Known Allergies ENCOUNTERS IMMUNIZATIONS SOCIAL HISTORY No smoking Hx information available REASON FOR VISIT PLAN OF CARE VITAL SIGNS MEDICATIONS Unknown Medications RESULTS No Results PROCEDURES INSTRUCTIONS MEDICATIONS ADMINISTERED No Known Medications MEDICAL (GENERAL) HISTORY
--- OUTSIDE RECORDS SUMMARY | 2019-07-28 10:05 | XMS REPORT ---
Author Author Jose Abbasi Doctor Organization [facility] Address Unknown Phone Unavailable Care Team Providers Care Granite Cutter Name Role Phone Migration, Doctor Unavailable Unavailable PROBLEMS Type Condition ICD9-CM Code LAV63-MX Code Onset Dates Condition S tatus SNOMED Code Problem Family history of diabetes mellitus V18.0 Active 349221524 Problem Counseling on substance use and abuse V65.42 Active 065729925 Problem Polyuria 788.42 Active 19803854 Problem Elevated blood pressure reading without diagnosi s of hypertension 796.2 Active 263068660 Problem Other malaise and fatigue 780.79 Acti ve 230043930 Problem Pain in soft tissues of limb 729.5 A ctive 11587551 Problem Blood in stool 578.1 Active 06480 9008 Problem Unspecified otalgia 388.70 Active 35938147 Problem Polydipsia 783.5 Active 11580297 Problem Nondependent tobacco use 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 [id number] [address] [place] [phone] Dec, Encounter for immunization Z 23 [facility] [address] [facility] [id number] [address] [place] [phone] Dec, [facility] [address] [facility] [id number] [address] [place] [phone] Dec, [facility] [address] [facility] [id number] [address] [place] [phone] Nov, Tuberculosis screening Z11.1 ; School physical exam Z02.0 ; Need for hepatitis B screening test Z11.59 and Encounter for immunization Z23 [facility] [address] [id number] [address] [place] [address], [place] [address] 14 Jul, 2014 [facility] [address] [id number] [address] [place] [address], [place] [address] Jul, [facility] [address] [id number] [address] [place] [address], [place] [address] Jun, [facility] [address] [id number] [address] [place] [address], [place] [address] Jun, [facility] [address] [id number] [address] [place] [address], [place] [address] Feb, [facility] [address] [id number] [address] [place] [address], [place] [address] Feb, [facility] [address] [id number] [address] [place] [address], [place] [address] Feb, [facility] [address] [id number] [address] [place] [phone] Feb, [facility] [address] [id number] [address] [place] [address], [place] [address] August, [facility] [address] [id number] [address] [place] [phone] August, [facility] [address] [id number] [address] [place] [phone] August, [facility] [address] [id number] [address] [place] [phone] August, [facility] [address] [id number] [address] [place] [address], [place] [address] Jul, [facility] [address] [id number] [address] [place] [phone] Jul, [facility] [address] [id number] [address] [place] [phone] Jun, [facility] [address] [id number] [address] [place] [phone] May, [facility] [address] [facility] [id number] [address] [place] [phone] May, [facility] [address] [facility] [id number] [address] [place] [phone] Nov, [facility] [address] [facility] [id number] [address] [place] [phone] Nov, [facility] [address] [facility] [id number] [address] [place] [phone] Jun, [facility] [address] [facility] [id number] [address] [place] [phone] Jun, IMMUNIZATIONS No Known Immunizations SOCIAL HISTORY Never Assessed REASON FOR VISIT EMR-[facility] PLAN OF CARE VITAL SIGNS MEDICATIONS Medication Instructions Dosage Frequency Start Date End Date Duration S tatus Azithromycin 250 mg 2 Tablet by Oral route 1 time per day for 6 days August, Active Ventolin HFA 90 mcg/actuation inhale 2 p uff by Inhalation route as needed every 4-6 hours PRN for cough or wheeze Jun, Active PredniSONE 10 mg 1 Tablet 2 times per day for 5 days Take at 8 am and noon. Do not take after 3 pm August, Active RESULTS No Results PROCEDURES No Known procedures INSTRUCTIONS MEDICATIONS ADMINISTERED No Known Medications MEDICAL (GENERAL) HISTORY Type Description Date Medical History HTN Surgical History tonsils removal 5 years old
--- OUTSIDE RECORDS SUMMARY | 2019-07-28 10:05 | XMS REPORT ---
Author Author Jose MANCILLA [facility] Address [address] [place] [address] Care Team Providers Care General Helper Name Role Phone MARKIE MANCILLA Unavailable PROBLEMS Type Condition ICD9-CM Code VVK03-QT Code Onset Dates Condition S tatus SNOMED Code Problem Family history of diabetes mellitus V18.0 Active 169019051 Problem Counseling on substance use and abuse V65.42 Active 365095269 Problem Polyuria 788.42 Active 70423745 Problem Elevated blood pressure reading without diagnosi s of hypertension 796.2 Active 604476052 Problem Other malaise and fatigue 780.79 Acti ve 620180099 Problem Pain in soft tissues of limb 729.5 A ctive 15975360 Problem Blood in stool 578.1 Active 66676 9008 Problem Unspecified otalgia 388.70 Active 14389461 Problem Polydipsia 783.5 Active 48934388 Problem Nondependent tobacco use disorder 305.1 Active 904327361 Problem Cough 786.2 Active 71297346 Problem Diaphragmatic hernia without mention of obstruction or gangrene 553.3 Active 73672322 Problem Esophageal reflux 530.81 Active 24 1767827 Problem Unspecified dental caries 521.00 Acti ve 55075026 Problem Acute pharyngitis 462 Active 36 [id number] ALLERGIES No Information ENCOUNTERS Encounter Location Date Diagnosis [facility] [address] [facility] [id number] [address] [place] [phone] Dec, Encounter for immunization Z 23 [facility] [address] [facility] [id number] [address] [place] [phone] Dec, [facility] [address] [facility] [id number] [address] [place] [phone] Dec, [facility] [address] [facility] [id number] [address] [place] [phone] Nov, Tuberculosis screening Z11.1 ; School physical exam Z02.0 ; Need for hepatitis B screening test Z11.59 and Encounter for immunization Z23 [facility] [address] [id number] [address] [place] [phone] 14 Jul, 2014 [facility] [address] [id number] [address] [place] [phone] Jul, [facility] [address] [id number] [address] [place] [phone] Jun, [facility] [address] [id number] [address] [place] [phone] Jun, [facility] [address] [id number] [address] [place] [phone] Feb, [facility] [address] [id number] [address] [place] [phone] Feb, [facility] [address] [id number] [address] [place] [phone] Feb, [facility] [address] [id number] [address] [place] [phone] Feb, [facility] [address] [id number] [address] [place] [phone] August, [facility] [address] [id number] [address] [place] [phone] August, [facility] [address] [id number] [address] [place] [phone] August, [facility] [address] [id number] [address] [place] [phone] August, [facility] [address] [id number] [address] [place] [phone] Jul, [facility] [address] [id number] [address] [place] [phone] Jul, [facility] [address] [id number] [address] [place] [phone] Jun, [facility] [address] [facility] [id number] [address] [place] [phone] May, [facility] [address] [facility] [id number] [address] [place] [phone] May, [facility] [address] [facility] [id number] [address] [place] [phone] Nov, [facility] [address] [facility] [id number] [address] [place] [phone] Nov, [facility] [address] [facility] [id number] [address] [place] [phone] Jun, [facility] [address] [facility] [id number] [address] [place] [phone] Jun, IMMUNIZATIONS No Known Immunizations SOCIAL HISTORY Never Assessed REASON FOR VISIT PLAN OF CARE VITAL SIGNS Height 70 in 2014-07-03 Weight 222.3 lbs 2014-07-03 Temperature 98.6 degrees Fahrenheit 2014-07-03 Heart Rate 80 bpm 2014-07-03 Respiratory Rate 18 2014-07-03 Blood pressure systolic 136 mmHg 2014-07-03 Blood pressure diastolic 80 mmHg 2014-07-03 MEDICATIONS Unknown Medications RESULTS No Results PROCEDURES No Known procedures INSTRUCTIONS MEDICATIONS ADMINISTERED No Known Medications MEDICAL (GENERAL) HISTORY Type Description Date Medical History HTN Surgical History tonsils removal 5 years old
--- OUTSIDE RECORDS SUMMARY | 2019-07-28 10:05 | XMS REPORT ---
Author Author Jose Abbasi Doctor Organization [facility] Address Unknown Phone Unavailable Care Team Providers Care Accounts Payables Clerk Name Role Phone Migration, Doctor Unavailable Unavailable PROBLEMS Type Condition ICD9-CM Code UXL87-GB Code Onset Dates Condition S tatus SNOMED Code Problem Family history of diabetes mellitus V18.0 Active 725114658 Problem Counseling on substance use and abuse V65.42 Active 373570615 Problem Polyuria 788.42 Active 78181805 Problem Elevated blood pressure reading without diagnosi s of hypertension 796.2 Active 472593655 Problem Other malaise and fatigue 780.79 Acti ve 672631515 Problem Pain in soft tissues of limb 729.5 A ctive 04939641 Problem Blood in stool 578.1 Active 07180 9008 Problem Unspecified otalgia 388.70 Active 52714030 Problem Polydipsia 783.5 Active 98083428 Problem Nondependent tobacco use disorder 305.1 Active 511848665 Problem Cough 786.2 Active 01027488 Problem Diaphragmatic hernia without mention of obstruction or gangrene 553.3 Active 55755379 Problem Esophageal reflux 530.81 Active 24 2695562 Problem Unspecified dental caries 521.00 Acti ve 01852285 Problem Acute pharyngitis 462 Active 36 [id number] ALLERGIES No Information ENCOUNTERS Encounter Location Date Diagnosis [facility] [address] [facility] [id number] [address] [place] [phone] Dec, Encounter for immunization Z 23 [facility] [address] [facility] [id number] [address] [place] [phone] Dec, [facility] [address] [facility] [id number] [address] [place] [phone] Dec, [facility] [address] [facility] [id number] [address] [place] [phone] Nov, Tuberculosis screening Z11.1 ; School physical exam Z02.0 ; Need for hepatitis B screening test Z11.59 and Encounter for immunization Z23 [facility] [address] [id number] [address] [place] [address], [place] [address] 14 Jul, 2014 [facility] [address] [id number] [address] [place] [address], [place] [address] Jul, [facility] [address] [id number] [address] [place] [address], [place] [address] Jun, [facility] [address] [id number] [address] [place] [address], [place] [phone] Jun, [facility] [address] [id number] [address] [place] [address], [place] [phone] Feb, [facility] [address] [id number] [address] [place] [address], [place] [address] Feb, [facility] [address] [id number] [address] [place] [address], [place] [phone] Feb, [facility] [address] [id number] [address] [place] [phone] Feb, [facility] [address] [id number] [address] [place] [address], [place] [phone] August, [facility] [address] [id number] [address] [place] [phone] August, [facility] [address] [id number] [address] [place] [phone] August, [facility] [address] [id number] [address] [place] [phone] August, [facility] [address] [id number] [address] [place] [address], [place] [id number] Jul, [facility] [address] [id number] [address] [place] [phone] Jul, [facility] [address] [id number] [address] [place] [phone] Jun, [facility] [address] [id number] [address] [place] [phone] May, [facility] [address] [facility] [id number] [address] [place] [phone] May, [facility] [address] [facility] [id number] [address] [place] [phone] Nov, [facility] [address] [facility] [id number] [address] [place] [phone] Nov, [facility] [address] [facility] [id number] [address] [place] [phone] Jun, [facility] [address] [facility] [id number] [address] [place] [phone] Jun, IMMUNIZATIONS No Known Immunizations SOCIAL HISTORY Never Assessed REASON FOR VISIT PLAN OF CARE VITAL SIGNS MEDICATIONS Unknown Medications RESULTS No Results PROCEDURES No Known procedures INSTRUCTIONS MEDICATIONS ADMINISTERED No Known Medications MEDICAL (GENERAL) HISTORY Type Description Date Medical History HTN Surgical History tonsils removal 5 years old
[2019-07-28 10:08] VITALS: BP 149/89
[2019-07-28] MEDS ORDERED: CYCL10TA9 PO (10:36)
== END 2019-07-28 10:11 | disposition home or self-care (01) ==
LOC: EDUNIT# 09:14 → ER 09:16
DX: S33.5XXA Sprain of ligaments of lumbar spine, initial encounter (principal); M54.16 Radiculopathy, lumbar region; X50.9XXA Other and unspecified overexertion or strenuous movements or postures, initial encounter; Y99.0 Civilian activity done for income or pay
CPT/HCPCS: 99284

== ENCOUNTER 2020-07-25 09:45 | Outpatient (RCR) | payer BC ==
[~2020-07-25 09:45] MED LIST changes: +HYDR-4226 PO; +LISI-729
== END 2020-07-25 12:47 | disposition home or self-care (01) ==
PROVIDERS: ATTEND Physician Assistant
DX: M54.12 Radiculopathy, cervical region (principal)

== ENCOUNTER → 2020-12-29 | Outpatient (CLI) | payer BC ==
[2020-12-29 09:06] LABS: BASOPHILS # (AUTO) 0.1 10^3/uL (0.0-0.1); BASOPHILS % (AUTO) 1 % (0-10); EOSINOPHILS # (AUTO) 0.2 10^3/uL (0.0-0.3); EOSINOPHILS % (AUTO) 2 % (0-10); HEMATOCRIT 50 % (40-54); HEMOGLOBIN 16.5 g/dL (13.3-17.7); LYMPHOCYTES # (AUTO) 3.6 10^3/uL (1.0-4.0); LYMPHOCYTES % (AUTO) 44 % (12-44); MEAN CORPUSCULAR HEMOGLOBIN 31 pg (25-34); MEAN CORPUSCULAR HGB CONC 33 g/dL (32-36); MEAN CORPUSCULAR VOLUME 93 fL (80-99); MEAN PLATELET VOLUME 9.6 fL (9.0-12.2); MONOCYTES # (AUTO) 0.6 10^3/uL (0.0-1.0); MONOCYTES % (AUTO) 7 % (0-12); NEUTROPHILS # (AUTO) 3.7 10^3/uL (1.8-7.8); NEUTROPHILS % (AUTO) 45 % (42-75); PLATELET COUNT 269 10^3/uL (130-400); WHITE BLOOD COUNT 8.3 10^3/uL (4.3-11.0)
[2020-12-29 09:24] LABS: ALBUMIN 4.3 GM/DL (3.2-4.5); POTASSIUM 4.3 MMOL/L (3.6-5.0)
[2020-12-29 09:26] LABS: CALCIUM 9.6 MG/DL (8.5-10.1)
[2020-12-29 09:27] LABS: TOTAL PROTEIN 6.9 GM/DL (6.4-8.2)
[2020-12-29 09:29] LABS: BILIRUBIN,TOTAL 0.6 MG/DL (0.1-1.0)
[2020-12-29 09:30] LABS: CREATININE SERUM 0.9 MG/DL (0.60-1.30)
== END ==
LOC: LAB 08:45
PROVIDERS: ATTEND Family Medicine
DX: Z00.00 Encounter for general adult medical examination without abnormal findings (principal); Z13.1 Encounter for screening for diabetes mellitus; R53.83 Other fatigue; R51.9 Headache, unspecified; R73.9 Hyperglycemia, unspecified
CPT/HCPCS: 36415; 80053; 83036; 85025

== ENCOUNTER 2021-04-20 08:01 | Emergency (ER) | payer BC ==
[~2021-04-20] VITALS: Ht 175.2 cm; Wt 118.0 kg
[~2021-04-20 08:01] MED LIST changes: +CYCL10TA25 PO; -LISI-729; +LISI5TAB20
[2021-04-20] MEDS: ONDANSETRON 4 MG/2 ML (SDV) Z0FRAN ONE ×2 (08:28→08:29)
--- NOTE | 2021-04-20 08:29 | ED Abdominal Pain ---
General Chief Complaint: Abdominal/GI Problems Stated Complaint: BLOOD IN URINE,ABD PAIN Source of Information: Patient Exam Limitations: No Limitations History of Present Illness Date Seen by Provider: Apr 20, 2021 Time Seen by Provider: 08:19 Initial Comments Patient is a 35-year-old male who presents to the emergency room with a chief complaint of a sudden onset of left flank/left lower quadrant abdominal pain. Woke up this morning and was asymptomatic. States that he felt like he needed to urinate but could not. He did have a normal bowel movement. He states later on as he was taking his daughter to school he had the sudden onset of pain. He rates it at a "9 or 10". Cannot find a comfortable position. Has never had pain like it before. States that he was able to dribble a small amount of urine that appeared to have blood in it. No prior history of kidney stones but his father has had them. Vomited x1. No recent fevers chills or other infectious symptoms. No prior abdominal surgery. No medication allergies. Covid vaccinated. All other review of systems reviewed and negative except as stated. Timing/Duration: 1/2 Hour Severity/Quality: Severe Location: LLQ, Flank (left) Radiation: Chest Activities at Onset: None Associated Symptoms: Chest Pain, Nausea/Vomiting Allergies and Home Medications Allergies Coded Allergies: No Known Drug Allergies (Unverified , 07/28/19) Patient Home Medication List Home Medication List Reviewed: Yes Cyclobenzaprine HCl (Cyclobenzaprine HCl) 10 Mg Tablet, 10 MG PO Q8H PRN for SPASMS Prescribed by: LIBORIO FLOWER on 07/28/19 1036 Hydrocodone/Acetaminophen (Hydrocodone/Acetaminophen 5 MG/325 MG TAB) 1 Each Tablet, 1 TAB PO Q6H PRN for PAIN-MODERATE (5-7) Prescribed by: LIBORIO FLOWER on 07/28/19 1002 Lisinopril (Lisinopril) 5 Mg Tablet, (Reported) Entered as Reported by: FLORENCIO JONES on 07/28/19 0932 Review of Systems Review of Systems Constitutional: see HPI EENTM: No Symptoms Reported Respiratory: No Symptoms Reported Cardiovascular: No Symptoms Reported Gastrointestinal: Abdominal Pain, Nausea, Vomiting Genitourinary: Flank Pain, Hematuria Musculoskeletal: no symptoms reported Skin: no symptoms reported Psychiatric/Neurological: Anxiety All Other Systems Reviewed Negative Unless Noted: Yes Past Zayfcck-Gzrqoa-Yydyyw Hx Immunizations Up To Date Tetanus Booster (TDap): Less than 5yrs Seasonal Allergies Seasonal Allergies: Yes Past Medical History Surgeries: Yes (EGD) Abdominal, Tonsillectomy Respiratory: No Cardiac: No Neurological: No Genitourinary: No Gastrointestinal: Yes Gastroesophageal Reflux, Hiatal Hernia Musculoskeletal: Yes Gout Endocrine: No HEENT: No Cancer: No Psychosocial: Yes Anxiety, Bipolar, Depression Integumentary: No Blood Disorders: No Family Medical History No Pertinent Family Hx Physical Exam Vital Signs Vital Signs - First Documented 04/20/21 08:06 Temp 35.8 Pulse 111 Resp 18 B/P (MAP) 161/99 (119) Pulse Ox 97 O2 Delivery Room Air Capillary Refill : Height/Weight/BMI Height: 5'9.00" Weight: 240lbs. oz. 108.962923vx; 37.00 BMI Method:Stated General Appearance: WD/WN, moderate distress HEENT: PERRL/EOMI, normal ENT inspection Neck: full range of motion Respiratory: normal breath sounds, no respiratory distress, no accessory muscle use Cardiovascular: regular rate, rhythm Gastrointestinal: soft, abnormal bowel sounds (hypoactive), tenderness (left flank) Extremities: normal range of motion, non-tender, normal inspection, no pedal edema, normal capillary refill Neurologic/Psychiatric: alert, normal mood/affect, oriented x 3 Skin: normal color, warm/dry Progress/Results/Core Measures Results/Orders Lab Results Laboratory Tests Test 04/20/21 08:15 04/20/21 08:44 Range/Units Sodium Level 138 135-145 MMOL/L Potassium Level 3.8 3.6-5.0 MMOL/L Chloride Level 104 98-107 MMOL/L Carbon Dioxide Level 21 21-32 MMOL/L Anion Gap 13 5-14 MMOL/L Blood Urea Nitrogen 9 7-18 MG/DL Creatinine 1.07 0.60-1.30 MG/DL Estimat Glomerular Filtration Rate 79 BUN/Creatinine Ratio 8 Glucose Level 131 H 70-105 MG/DL Calcium Level 9.4 8.5-10.1 MG/DL Urine Color YELLOW Urine Clarity CLEAR Urine pH 5.5 5-9 Urine Specific Hamilton >=1.030 1.016-1.022 Urine Protein 2+ H NEGATIVE Urine Glucose (UA) NEGATIVE NEGATIVE Urine Ketones TRACE H NEGATIVE Urine Nitrite NEGATIVE NEGATIVE Urine Bilirubin 2+ H NEGATIVE Urine Urobilinogen 1.0 < = 1.0 MG/DL Urine Leukocyte Esterase NEGATIVE NEGATIVE Urine RBC (Auto) 3+ H NEGATIVE Urine RBC TNTC H /HPF Urine WBC 2-5 /HPF Urine Squamous Epithelial Cells 0-2 /HPF Urine Crystals NONE /LPF Urine Calcium Oxalate Crystals FEW H /LPF Urine Amorphous Sediment FEW BOOKER URATES H /LPF Urine Bacteria MODERATE H /HPF Urine Casts NONE /LPF Urine Mucus NEGATIVE /LPF Urine Culture Indicated YES My Orders Orders - DIXIE ZAVALA MD Ed Iv/Invasive Line Start (04/20/21 08:17) Basic Metabolic Panel (04/20/21 08:17) Ua Culture If Indicated (04/20/21 08:17) Abdomen/Kub 1view (04/20/21 08:17) Ondansetron Injection (Zofran Injectio (04/20/21 08:30) Ns Iv 1000 Ml (Sodium Chloride 0.9%) (04/20/21 08:30) Ketorolac Injection (Toradol Injection) (04/20/21 08:30) Ondansetron Injection (Zofran Injectio (04/20/21 08:18) Ct Abd/Pelvis Wo(Kidney Stone) (04/20/21 09:02) Urine Culture (04/20/21 08:44) Morphine Injection (Morphine Injection (04/20/21 09:21) Medications Given in ED Current Medications Medications Dose Ordered Sig/Sara Route Start Time Stop Time Status Last Admin Dose Admin Ketorolac Tromethamine 30 mg ONCE ONCE IVP 04/20/21 08:30 04/20/21 08:31 DC 04/20/21 08:24 30 MG Ondansetron HCl 8 mg ONCE ONCE IVP 04/20/21 08:30 04/20/21 08:31 DC 04/20/21 08:21 8 MG Vital Signs/I&O 04/20/21 08:06 Temp 35.8 Pulse 111 Resp 18 B/P (MAP) 161/99 (119) Pulse Ox 97 O2 Delivery Room Air Progress Progress Note : Time: 09:48 Progress Note Patient reexamined, his nausea is much improved. Pain level is down to a "3". I have reviewed discharge plan with him, we will send him home on Macrobid secondary to bacteria in the urine. Home with hydrocodone and Zofran as well as Flomax. Return precautions given. Patient verbalized understanding, all questions are sought and answered. Diagnostic Imaging Comments [facility] [place], [place] NAME: GABE BOLANOS [facility] REC#: [id number] PT STATUS: REG ER : 1985 PHYSICIAN: DIXIE ZAVALA MD ADMIT DATE: 04/20/21/ER Draft Date of Exam:04/20/21 CT ABD/PELVIS WO(KIDNEY STONE) PROCEDURE: CT urinary tract, rule out kidney stone. TECHNIQUE: Multiple contiguous axial images were obtained through the abdomen and pelvis without the use of intravenous contrast. Auto Exposure Controls were utilized during the CT exam to meet ALARA standards for radiation dose reduction. INDICATION: Hematuria. The lung bases are clear. Liver demonstrates diffuse low density consistent with hepatic steatosis. No discrete liver mass is identified. Gallbladder is unremarkable. There is no biliary duct dilatation. Pancreas and spleen are unremarkable. No adrenal mass is detected. Punctate nonobstructing calculi in the right kidney are noted. No left renal calculi are seen. However, left renal collecting system and left ureter are slightly prominent. This is traced into the pelvis where there is an approximately 1 mm calculus located in the distal left ureter just above the UVJ. No bladder calculi are seen. Bladder is decompressed. Aorta is nonaneurysmal. The bowel loops are normal caliber. There is no ascites. Prostate is unremarkable. IMPRESSION: 1. Nonobstructing right-sided renal calculi. There is also approximately 1 mm distal left ureteric calculus producing mild hydroureteronephrosis. 2. Hepatic steatosis. Dictated on workstation # [id number] Dict: 04/20/21919 Trans: 04/20/21 0925 MICHELLE [phone] Interpreted by: CHERIE JASON MD Electronically signed by: Departure Impression Primary Impression: Left ureteral stone Disposition: HOME, SELF-CARE Condition: Improved Departure-Patient Inst. Decision time for Depature: 09:49 Referrals: EULALIO GALLEGOS MD Patient Instructions: Kidney Stones in Adults Add. Discharge Instructions: Drink lots of fluids to stay well-hydrated. You can take [id number] ibuprofen, 3 tablets which is 600 mg every 6 hours for pain. I have also given you a prescription for hydrocodone. Take this for more severe pain. You can take 1 every 6 hours. Keep in mind that hydrocodone is a narcotic and may be habit-forming. Take stool softeners if you are needing to take hydrocodone. Finish your antibiotic prescription as written. Nausea medicines as needed. Flomax daily at night. Return to the emergency room for any new, concerning complaints or for any fever over 100.4. You should also strain your urine until you passed her stone. Scripts Nitrofurantoin Monohyd/M-Cryst (Macrobid 100 mg Capsule) 100 Mg Capsule 1 TAB PO BID for 7 Days, #14 CAP Prov: DIXIE ZAVALA MD 04/20/21 Hydrocodone/Acetaminophen (Hydrocodone-Acetamin 5-325 mg) 1 Each Tablet 1 TAB PO Q6H PRN for PAIN-MODERATE (5-7), #12 TAB Prov: DIXIE ZAVALA MD 04/20/21 Ondansetron (Ondansetron Odt) 4 Mg Tab.rapdis 4 MG PO Q8H PRN for nausea, #15 TAB Prov: DIXIE ZAVALA MD 04/20/21 Tamsulosin HCl (Flomax) 0.4 Mg Cap 0.4 MG PO DAILY, #14 CAP Prov: DIXIE ZAVALA MD 04/20/21 DIXIE ZAVALA MD Apr 20, 2021 08:29
[2021-04-20] MEDS ORDERED: NS IV 1000 ML 1,000 ML IV SCH (08:30)
[2021-04-20] MEDS ORDERED: KETOROLAC 30 MG/ML VIAL IVP ONE (08:30)
[2021-04-20] MEDS ORDERED: ONDANSETRON 4 MG/2 ML (SDV) Z0FRAN IVP ONE (08:30)
[2021-04-20 08:45] LABS: POTASSIUM 3.8 MMOL/L (3.6-5.0)
[2021-04-20 08:46] LABS: CALCIUM 9.4 MG/DL (8.5-10.1)
[2021-04-20 08:50] LABS: CLARITY,URINE CLEAR; COLOR,URINE YELLOW; GLUCOSE, URINE (UA) NEGATIVE (NEGATIVE); KETONES,URINE TRACE (NEGATIVE); LEUKOCYTE ESTERASE ,URINE NEGATIVE (NEGATIVE); NITRITE,URINE NEGATIVE (NEGATIVE); PH,URINE 5.5 (5-9); PROTEIN,URINE 2+ (NEGATIVE)
[2021-04-20 08:51] LABS: CREATININE SERUM 1.07 MG/DL (0.60-1.30)
[2021-04-20 09:05] LABS: AMORPHOUS SEDIMENT,UR FEW AMOR URATES /LPF; BACTERIA,URINE MODERATE /HPF; CALCIUM OXALATE CRYSTALS,UR FEW /LPF; RBC,URINE TNTC /HPF; SQUAMOUS EPITHELIAL CELL,UR 0-2 /HPF
[2021-04-20 09:06] LABS: BILIRUBIN,URINE 2+ (NEGATIVE)
--- NOTE | 2021-04-20 09:09 | Diagnostic Imaging Report ---
INDICATION: Left-sided abdominal pain radiating to the left groin. TIME OF EXAM: 9:09 AM Single view of the abdomen was obtained. Bowel gas pattern is nonobstructed. No definite radiopaque urinary tract calculi are seen. There are calcifications in the pelvis which may represent phleboliths. IMPRESSION: No acute feature detected. Dictated by: Dictated on workstation # [id number]
[2021-04-20] MEDS ORDERED: morphine INJ 10 MG/ML 1ML (SYR OR VIAL) IVP STA ×2 (09:21→10:28)
--- NOTE | 2021-04-20 09:25 | Diagnostic Imaging Report ---
PROCEDURE: CT urinary tract, rule out kidney stone. TECHNIQUE: Multiple contiguous axial images were obtained through the abdomen and pelvis without the use of intravenous contrast. Auto Exposure Controls were utilized during the CT exam to meet ALARA standards for radiation dose reduction. INDICATION: Hematuria. The lung bases are clear. Liver demonstrates diffuse low density consistent with hepatic steatosis. No discrete liver mass is identified. Gallbladder is unremarkable. There is no biliary duct dilatation. Pancreas and spleen are unremarkable. No adrenal mass is detected. Punctate nonobstructing calculi in the right kidney are noted. No left renal calculi are seen. However, left renal collecting system and left ureter are slightly prominent. This is traced into the pelvis where there is an approximately 1 mm calculus located in the distal left ureter just above the UVJ. No bladder calculi are seen. Bladder is decompressed. Aorta is nonaneurysmal. The bowel loops are normal caliber. There is no ascites. Prostate is unremarkable. IMPRESSION: 1. Nonobstructing right-sided renal calculi. There is also approximately 1 mm distal left ureteric calculus producing mild hydroureteronephrosis. 2. Hepatic steatosis. Dictated by: Dictated on workstation # [id number]
[2021-04-20] MEDS ORDERED: ONDA4TAB11 PO (09:55)
[2021-04-20] MEDS ORDERED: NITR-65 PO (09:55)
[2021-04-20] MEDS ORDERED: TMSL.4C PO (09:55)
[2021-04-20] MEDS ORDERED: ACHD5005 PO (09:55)
[2021-04-20] MEDS ORDERED: TAMSULOSIN 0.4 MG (FLOMAX) CAP PO ONE ×2 (09:59→10:07)
[2021-04-20] MEDS ORDERED: NS IV 500 ML 500 ML IV SCH (10:00)
[2021-04-20] MEDS ORDERED: HYDROcodone/APAP 7.5 MG/325 MG (LORTAB, LORCET PLUS) TABLET PO ONE (10:00)
[2021-04-20] MEDS ORDERED: diphenhydrAMINE 50 MG/ML INJ (BENADRYL) IVP ONE (10:30)
[2021-04-20 11:39] VITALS: BP 147/112
[2021-04-20] MEDS ORDERED: TAMSULOSIN 0.4 MG (FLOMAX) CAP PO SCH (18:00)
== END 2021-04-20 11:39 | disposition home or self-care (01) ==
LOC: EDUNIT# 08:01 → ER 08:02
DX: N13.2 Hydronephrosis with renal and ureteral calculous obstruction (principal)
CPT/HCPCS: 36415; 74018; 74176; 80048; 81000; 87088

== ENCOUNTER 2022-06-15 02:14 | Emergency (ER) | payer BC ==
[~2022-06-15] VITALS: Ht 175.3 cm; Wt 118.0 kg
[2022-06-15] MEDS ORDERED: KETOROLAC 30 MG/ML VIAL IVP STA (02:26)
[2022-06-15] MEDS ORDERED: fentaNYL INJ 100 MCG/2 ML AMP IVP STA (02:26)
[2022-06-15 02:36] LABS: BASOPHILS # (AUTO) 0.1 10^3/uL (0.0-0.1); BASOPHILS % (AUTO) 1 % (0-10); EOSINOPHILS # (AUTO) 0.3 10^3/uL (0.0-0.3); EOSINOPHILS % (AUTO) 2 % (0-10); HEMATOCRIT 46 % (40-54); LYMPHOCYTES # (AUTO) 5.7 10^3/uL (1.0-4.0); LYMPHOCYTES % (AUTO) 39 % (12-44); MEAN CORPUSCULAR HEMOGLOBIN 31 pg (25-34); MEAN CORPUSCULAR HGB CONC 35 g/dL (32-36); MEAN CORPUSCULAR VOLUME 90 fL (80-99); MEAN PLATELET VOLUME 9.6 fL (9.0-12.2); MONOCYTES # (AUTO) 1.2 10^3/uL (0.0-1.0); MONOCYTES % (AUTO) 8 % (0-12); NEUTROPHILS # (AUTO) 7.3 10^3/uL (1.8-7.8); NEUTROPHILS % (AUTO) 50 % (42-75); PLATELET COUNT 318 10^3/uL (130-400); WHITE BLOOD COUNT 14.7 10^3/uL (4.3-11.0)
[2022-06-15 02:45] LABS: ALBUMIN 4.2 GM/DL (3.2-4.5)
[2022-06-15 02:47] LABS: CALCIUM 9.2 MG/DL (8.5-10.1)
[2022-06-15 02:48] LABS: TOTAL PROTEIN 6.6 GM/DL (6.4-8.2)
[2022-06-15 02:50] LABS: BILIRUBIN,TOTAL 0.4 MG/DL (0.1-1.0)
[2022-06-15 02:52] LABS: CREATININE SERUM 1.04 MG/DL (0.60-1.30)
[2022-06-15 02:54] LABS: EOSINOPHILS % (MANUAL) 2 %; LYMPHOCYTES % (MANUAL) 37 %; MONOCYTES % (MANUAL) 7 %; NEUTROPHILS % (MANUAL) 54 %; RBC MORPH NORMAL
--- NOTE | 2022-06-15 03:07 | ED Lower Extremity ---
General Chief Complaint: Lower Extremity Stated Complaint: RT ANKLE PAIN Nursing Triage Note: Pt to ED 7 w c/o right ankle pain behind ankle up to back of knee, starting 19306/14/22 while walking at work. Pt reports getting progressively worse since. Pt has taken an Oxy 5 at 2300 with no relief. Pt reports pain 8/10. Pt denies injury. Source: patient Exam Limitations: no limitations History of Present Illness Date Seen by Provider: Jun 15, 2022 Time Seen by Provider: 02:20 Initial Comments Here with acute onset of right ankle pain and pain to the back of the leg that started about 730 last night. It has progressively worsened. Patient does have history of factor V Leiden and is worried about blood clots. He did take an oxycodone 5 mg tablet at about 11 PM last night and has had no significant pain relief. Denies specific injury. He has never had anything like this before. States he had gout 1 time many years ago but has not had since. No significant swelling reported. Denies shortness of breath or breathing problems. Denies fever. Onset: yesterday (Last night) Severity: moderate, severe Pain/Injury Location: right ankle Method of Injury: unknown Modifying Factors: Improves With Immobilization; Worse With Movement Allergies and Home Medications Allergies Coded Allergies: No Known Drug Allergies (Unverified , 07/28/19) Patient Home Medication List Home Medication List Reviewed: Yes Cyclobenzaprine HCl (Cyclobenzaprine HCl) 10 Mg Tablet, 10 MG PO Q8H PRN for SPASMS Prescribed by: LIBORIO FLOWER on 07/28/19 1036 Hydrocodone/Acetaminophen (Hydrocodone/Acetaminophen 5 MG/325 MG TAB) 1 Each Tablet, 1 TAB PO Q6H PRN for PAIN-MODERATE (5-7) Prescribed by: LIBORIO FLOWER on 07/28/19 1002 Hydrocodone/Acetaminophen (Hydrocodone-Acetamin 5-325 mg) 1 Each Tablet, 1 TAB PO Q6H PRN for PAIN-MODERATE (5-7) Prescribed by: DIXIE ZAVALA on 04/20/21 0956 Hydrocodone/Acetaminophen (Hydrocodone-Acetamin 5-325 mg) 5 Mg-325 Mg Tablet, 1 TAB PO Q6H PRN for PAIN-MODERATE (5-7) Prescribed by: LIBORIO FLOWER on 06/15/22 0546 Lisinopril (Lisinopril) 5 Mg Tablet, (Reported) Entered as Reported by: FLORENCIO JONES on 07/28/19 0932 Nitrofurantoin Monohyd/M-Cryst (Macrobid 100 mg Capsule) 100 Mg Capsule, 1 TAB PO BID Prescribed by: DIXIE ZAVALA on 04/20/21 09 Ondansetron (Ondansetron Odt) 4 Mg Tab.rapdis, 4 MG PO Q8H PRN for nausea Prescribed by: DIXIE ZAVALA on 04/20/21 09 Prednisone (Prednisone) 20 Mg Tab, 40 MG PO DAILY Prescribed by: LIBORIO FLOWER on 06/15/22 0545 Tamsulosin HCl (Flomax) 0.4 Mg Cap, 0.4 MG PO DAILY Prescribed by: DIXIE ZAVALA on 04/20/21 09 Review of Systems Constitutional: see HPI; No chills, No fever Respiratory: No cough, No short of breath Cardiovascular: no symptoms reported Musculoskeletal: joint pain; No joint swelling; muscle pain Skin: No change in color, No lesions Psychiatric/Neurological: Denies Paresthesia Past Clgpbfa-Djrlat-Hoscnq Hx Patient Social History Tobacco Use?: Yes Smokeless Tobacco Frequency: Current Someday User Use of E-Cig and/or Vaping dev: No Substance use?: No Alcohol Use?: Yes Alcohol Frequency: Once in a while Pt feels they are or have been: No Immunizations Up To Date Tetanus Booster (TDap): Less than 5yrs Influenza Vaccine Up-to-Date: Yes; Up-to-Date First/Initial COVID19 Vaccinat: Second COVID19 Vaccination Ernie: APR 2020 Third COVID19 Vaccination Date: Seasonal Allergies Seasonal Allergies: Yes Past Medical History Surgeries: Yes (EGD) Abdominal, Tonsillectomy Respiratory: No Cardiac: No Neurological: No Genitourinary: No Gastrointestinal: Yes Gastroesophageal Reflux, Hiatal Hernia Musculoskeletal: Yes Gout Endocrine: No HEENT: No Cancer: No Psychosocial: Yes Anxiety, Bipolar, Depression Integumentary: No Blood Disorders: No Family Medical History Reviewed Nursing Family Hx No Pertinent Family Hx Physical Exam Vital Signs Vital Signs - First Documented 06/15/22 02:18 Temp 36.9 Pulse 96 Resp 18 B/P (MAP) 139/91 (107) Pulse Ox 98 O2 Delivery Room Air Capillary Refill : Height, Weight, BMI Height: 5'9.00" Weight: 240lbs. oz. 108.233336sq; 38.00 BMI Method:Stated General Appearance: WD/WN, mild distress Cardiovascular: regular rate, rhythm, no murmur Respiratory: lungs clear, normal breath sounds Legs: right leg soft tissue tenderness (Distal calf) Ankles: right ankle limited range of motion, right ankle pain, right ankle soft tissue tenderness Feet: right foot pain, right foot soft tissue tenderness Neurologic/Psychiatric: alert, oriented x 3 Skin: normal color, warm/dry Progress/Results/Core Measures Results/Orders Lab Results Laboratory Tests Test 06/15/22 02:30 Range/Units White Blood Count 14.7 H 4.3-11.0 10^3/uL Red Blood Count 5.15 4.30-5.52 10^6/uL Hemoglobin 16.0 13.3-17.7 g/dL Hematocrit 46 40-54 % Mean Corpuscular Volume 90 80-99 fL Mean Corpuscular Hemoglobin 31 25-34 pg Mean Corpuscular Hemoglobin Concent 35 32-36 g/dL Red Cell Distribution Width 12.6 10.0-14.5 % Platelet Count 318 130-400 10^3/uL Mean Platelet Volume 9.6 9.0-12.2 fL Immature Granulocyte % (Auto) 0 % Neutrophils (%) (Auto) 50 42-75 % Lymphocytes (%) (Auto) 39 12-44 % Monocytes (%) (Auto) 8 0-12 % Eosinophils (%) (Auto) 2 0-10 % Basophils (%) (Auto) 1 0-10 % Neutrophils # (Auto) 7.3 1.8-7.8 10^3/uL Lymphocytes # (Auto) 5.7 H 1.0-4.0 10^3/uL Monocytes # (Auto) 1.2 H 0.0-1.0 10^3/uL Eosinophils # (Auto) 0.3 0.0-0.3 10^3/uL Basophils # (Auto) 0.1 0.0-0.1 10^3/uL Immature Granulocyte # (Auto) 0.1 0.0-0.1 10^3/uL Neutrophils % (Manual) 54 % Lymphocytes % (Manual) 37 % Monocytes % (Manual) 7 % Eosinophils % (Manual) 2 % Blood Morphology Comment NORMAL D-Dimer <= 0.27 0.00-0.49 UG/ML Sodium Level 141 135-145 MMOL/L Potassium Level 4.0 3.6-5.0 MMOL/L Chloride Level 111 H 98-107 MMOL/L Carbon Dioxide Level 19 L 21-32 MMOL/L Anion Gap 11 5-14 MMOL/L Blood Urea Nitrogen 8 7-18 MG/DL Creatinine 1.04 0.60-1.30 MG/DL Estimat Glomerular Filtration Rate 95 BUN/Creatinine Ratio 8 Glucose Level 121 H 70-105 MG/DL Calcium Level 9.2 8.5-10.1 MG/DL Corrected Calcium 9.0 8.5-10.1 MG/DL Total Bilirubin 0.4 0.1-1.0 MG/DL Aspartate Amino Transf (AST/SGOT) 31 5-34 U/L Alanine Aminotransferase (ALT/SGPT) 74 H 0-55 U/L Alkaline Phosphatase 42 40-136 U/L C-Reactive Protein High Sensitivity 0.64 H 0.00-0.50 MG/DL Total Protein 6.6 6.4-8.2 GM/DL Albumin 4.2 3.2-4.5 GM/DL My Orders Orders - LIBORIO FLOWER MD Ed Iv/Invasive Line Start (06/15/22 02:26) Cbc With Automated Diff (06/15/22 02:26) Comprehensive Metabolic Panel (06/15/22 02:26) Hs C Reactive Protein (06/15/22 02:26) Fentanyl Inj (Sublimaze Injection) (06/15/22 02:26) Ketorolac Injection (Toradol Injection) (06/15/22 02:26) Manual Differential (06/15/22 02:30) Fibrin Degradation Products (06/15/22 02:56) Colchicine Tablet (Colcrys Tablet) (06/15/22 04:00) Hydromorphone Injection (Dilaudid Inject (06/15/22 04:00) Colchicine Tablet (Colcrys Tablet) (06/15/22 05:15) Prednisone Tablet (Deltasone Tablet) (06/15/22 05:30) Medications Given in ED Current Medications Medications Dose Ordered Sig/Sara Route Start Time Stop Time Status Last Admin Dose Admin Colchicine 0.6 mg ONCE ONCE PO 06/15/22 05:15 06/15/22 05:16 DC 06/15/22 05:23 0.6 MG Colchicine 1.2 mg ONCE ONCE PO 06/15/22 04:00 06/15/22 04:01 DC 06/15/22 04:03 1.2 MG Hydromorphone HCl 1 mg ONCE ONCE IV 06/15/22 04:00 06/15/22 04:01 DC 06/15/22 03:59 1 MG Prednisone 40 mg ONCE ONCE PO 06/15/22 05:30 06/15/22 05:31 DC 06/15/22 05:30 40 MG Vital Signs/I&O 06/15/22 02:18 Temp 36.9 Pulse 96 Resp 18 B/P (MAP) 139/91 (107) Pulse Ox 98 O2 Delivery Room Air Blood Pressure Mean: 107 Progress Progress Note : Progress Note Seen and evaluated. IV and labs ordered including CBC, CMP and D-dimer. Ketorolac 30 mg IV and fentanyl 50 mcg IV ordered. Monitor patient. Differential diagnosis includes thrombosis, gout 0350: D-dimer is negative. CBC shows mildly elevated white count of 14.7 with normal hemoglobin. CMP shows grossly normal electrolytes with slightly elevated glucose at 121. CRP is negative at 0.64. Colchicine 1.2 mg p.o. ordered and Dilaudid 1 mg IV ordered for pain and suspicion of gout. Much less likely that this is thrombotic event at this point. We did discuss risk and benefits of anticoagulation versus follow-up for ultrasound or follow-up as needed. He does have appointment with his primary care physician at 830 this morning and will keep that. Monitor patient. 0526: I have ordered second dose of colchicine at 0.6 mg p.o. and we will also give prednisone 40 mg p.o. Patient states his pain is much better. Again he will keep his follow-up this morning and discussed with his doctor about possibility for ultrasound if still indicated or further imaging is needed.. Discharged home with return precautions. Patient verbal ized understanding of instructions and agreement with plan. Departure Impression Primary Impression: Right ankle pain Qualified Codes: M25.571 - Pain in right ankle and joints of right foot Additional Impression: Gout Qualified Codes: M10.9 - Gout, unspecified Disposition: 01 HOME, SELF-CARE Condition: Improved Departure-Patient Inst. Decision time for Depature: 05:44 Referrals: MIKIE SPRINGER MD (PCP) Primary Care Physician Patient Instructions: Acute Pain, Adult, Gout (DC) Scripts Prednisone (Prednisone) 20 Mg Tab 40 MG PO DAILY, #6 TAB 0 Refills Prov: LIBORIO FLOWER MD 06/15/22 Hydrocodone/Acetaminophen (Hydrocodone-Acetamin 5-325 mg) 5 Mg-325 Mg Tablet 1 TAB PO Q6H PRN for PAIN-MODERATE (5-7) for 7 Days, #8 TAB 0 Refills Prov: LIBORIO FLWOER MD 06/15/22 LIBORIO FLOWER MD Jun 15, 2022 03:07
[2022-06-15] MEDS ORDERED: HYDROmorphone 2 MG/ML VIAL (DILAUDID) IV ONE (04:00)
[2022-06-15] MEDS ORDERED: COLCHICINE 0.6 MG (COLCRYS) TABLET PO ONE ×2 (04:00→05:15)
[2022-06-15] MEDS ORDERED: predniSONE 20 MG TAB PO ONE (05:30)
[2022-06-15] MEDS ORDERED: PRD20T PO (05:45)
[2022-06-15] MEDS ORDERED: ACHD5005 PO (05:45)
[2022-06-15 05:58] VITALS: BP 125/84
== END 2022-06-15 05:59 | disposition home or self-care (01) ==
LOC: EDUNIT# 02:14 → ER 02:15
DX: M10.9 Gout, unspecified (principal); R73.9 Hyperglycemia, unspecified; F17.200 Nicotine dependence, unspecified, uncomplicated
CPT/HCPCS: 36415; 80053; 85007; 85027; 85379; 86141; 99283

== ENCOUNTER → 2022-06-15 | Outpatient (CLI) | payer BC ==
[~2022-06-15] MED LIST changes: +NITR-65 PO; +ONDA4TAB11 PO; +TMSL.4C PO
== END ==
LOC: ER 02:30
PROVIDERS: ATTEND Thoracic Surgery (Cardiothoracic Vascular Surgery)
DX: M10.071 Idiopathic gout, right ankle and foot (principal); E11.9 Type 2 diabetes mellitus without complications
CPT/HCPCS: 84550

== ENCOUNTER 2022-08-29 18:15 | Emergency (ER) | payer BC ==
[~2022-08-29] VITALS: Ht 175 cm; Wt 109.0 kg
[2022-08-29] MEDS ORDERED: NS IV 1000 ML 1,000 ML IV SCH (18:30)
--- NOTE | 2022-08-29 18:37 | ED Cough/URI ---
General Chief Complaint: Fever-Adult/Adol Stated Complaint: SORE THROAT/SOA/BODYACHES/FEVER Nursing Triage Note: PT CO OF FEVER, SORETHROAT AND BODY ACHES TODAY, STATES FEELS REALLY BAD Source: patient Exam Limitations: no limitations (KINGA SHEA APRN) History of Present Illness Date Seen by Provider: August 29, 2022 Time Seen by Provider: 18:20 Initial Comments 37-year-old male presents to the ED with complaints of sudden onset of flulike symptoms starting at 5 AM this morning. He states "I feel like I got hit by a [place] truck." He complains of body aches, headache, fever, sore throat, nasal congestion, shortness of air. States that his temperature has been between 101 and 102, states he has been unable to break it with Tylenol and ibuprofen. Denies chest pain, abdominal pain, diarrhea. Reports he had 1 episode of vomiting last night. Past medical history includes hypertension, type 2 diabetes. He currently takes metoprolol, lisinopril, and Jardiance. 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 (KINGA SHEA APRN) Allergies and Home Medications Allergies Coded Allergies: No Known Drug Allergies (Unverified , 07/28/19) Patient Home Medication List Home Medication List Reviewed: Yes (KINGA SHEA APRN) Amoxicillin (Amoxicillin) 500 Mg Capsule, 500 MG PO BID Prescribed by: Kinga Shea on 08/29/22 210 Cyclobenzaprine HCl (Cyclobenzaprine HCl) 10 Mg Tablet, 10 MG PO Q8H PRN for SPASMS Prescribed by: LIBORIO FLOWER on 07/28/19 1036 Hydrocodone/Acetaminophen (Hydrocodone/Acetaminophen 5 MG/325 MG TAB) 1 Each Tablet, 1 TAB PO Q6H PRN for PAIN-MODERATE (5-7) Prescribed by: LIBORIO FLOWER on 07/28/19 1002 Hydrocodone/Acetaminophen (Hydrocodone-Acetamin 5-325 mg) 1 Each Tablet, 1 TAB PO Q6H PRN for PAIN-MODERATE (5-7) Prescribed by: DIXIE ZAVALA on 04/20/21 0956 Hydrocodone/Acetaminophen (Hydrocodone-Acetamin 5-325 mg) 5 Mg-325 Mg Tablet, 1 TAB PO Q6H PRN for PAIN-MODERATE (5-7) Prescribed by: LIBORIO FLOWER on 06/15/22 05 Lisinopril (Lisinopril) 5 Mg Tablet, (Reported) Entered as Reported by: FLORENCIO JONES on 07/28/19 09 Nitrofurantoin Monohyd/M-Cryst (Macrobid 100 mg Capsule) 100 Mg Capsule, 1 TAB PO BID Prescribed by: DIXIE ZAVALA on 04/20/21 09 Ondansetron (Ondansetron Odt) 4 Mg Tab.rapdis, 4 MG PO Q8H PRN for nausea Prescribed by: DIXIE ZAVALA on 04/20/21954 Prednisone (Prednisone) 20 Mg Tab, 40 MG PO DAILY Prescribed by: LIBORIO FLOWER on 06/15/22 0545 Tamsulosin HCl (Flomax) 0.4 Mg Cap, 0.4 MG PO DAILY Prescribed by: DIXIE ZAVALA on 04/20/21954 Review of Systems Review of Systems Constitutional: see HPI (KINGA SHEA APRN) Past Jsxertr-Eiefte-Qgcenb Hx Patient Social History Tobacco Use?: No Smokeless Tobacco Frequency: Current Everyday User Substance use?: No Alcohol Use?: Yes Alcohol type: Beer Alcohol Frequency: Once in a while (KINGA SHEA APRN) Immunizations Up To Date Tetanus Booster (TDap): Less than 5yrs Influenza Vaccine Up-to-Date: No; Not Current First/Initial COVID19 Vaccinat: Second COVID19 Vaccination Ernie: APR 2020 Third COVID19 Vaccination Date: (KINGA SHEA APRN) Seasonal Allergies Seasonal Allergies: Yes (KINGA SHEA APRN) Past Medical History Surgery/Hospitalization HX: KIDNEY STONE, HTN, TYPE 2 DIABETES Surgeries: Yes (EGD) Abdominal, Tonsillectomy Respiratory: No Cardiac: No Neurological: No Genitourinary: No Gastrointestinal: Yes Gastroesophageal Reflux, Hiatal Hernia Musculoskeletal: Yes Gout Endocrine: No HEENT: No Cancer: No Psychosocial: Yes Anxiety, Bipolar, Depression Integumentary: No Blood Disorders: No (KINGA SHEA APRN) Family Medical History No Pertinent Family Hx (KINGA SHEA APRN) Physical Exam Vital Signs - First Documented 08/29/22 18:22 Temp 37.9 Pulse 98 Resp 18 B/P (MAP) 129/84 (99) Pulse Ox 95 (MARI LIVINGSTON MD) Capillary Refill : Less Than 3 Seconds (KINGA SHEA APRN) Height: 5'9.00" Weight: 240lbs. oz. 108.040147gb; 35.00 BMI Method:Stated General Appearance: WD/WN, no apparent distress HEENT: No pharyngeal erythema, No tonsillar exudate; other (Tonsils enlarged) Neck: supple, normal inspection Respiratory: lungs clear, normal breath sounds, no respiratory distress, no accessory muscle use Cardiovascular: tachycardia Extremities: normal range of motion, normal inspection Neurologic/Psychiatric: alert, normal mood/affect Skin: normal color, warm/dry (KINGA SHEA APRN) Focused Exam Lactate Level 08/29/22 18:30: Lactic Acid Level 1.20 (MARI LIVINGSTON MD) Lactic Acid Level Laboratory Tests Test 08/29/22 18:30 Lactic Acid Level 1.20 MMOL/L (0.50-2.00) (MARI LIVINGSTON MD) Progress/Results/Core Measures Suspected Sepsis SIRS Temperature: Pulse: 98 Respiratory Rate: 18 Laboratory Tests 08/29/22 18:30: White Blood Count 17.4H Blood Pressure 129 /84 Mean: 99 08/29/22 18:30: Lactic Acid Level 1.20 Laboratory Tests 08/29/22 18:30: Creatinine 1.13, Platelet Count 269, Total Bilirubin 0.9 (KINGA SHEA APRN) Results/Orders Lab Results Laboratory Tests Test 08/29/22 18:23 08/29/22 18:30 08/29/22 20:12 Range/Units Influenza Type A (RT-PCR) Not Detected Not Detecte Influenza Type B (RT-PCR) Not Detected Not Detecte SARS-CoV-2 RNA (RT-PCR) Not Detected Not Detecte Group A Streptococcus Screen NEGATIVE NEGATIVE White Blood Count 17.4 H 4.3-11.0 10^3/uL Red Blood Count 4.86 4.30-5.52 10^6/uL Hemoglobin 15.3 13.3-17.7 g/dL Hematocrit 45 40-54 % Mean Corpuscular Volume 92 80-99 fL Mean Corpuscular Hemoglobin 32 25-34 pg Mean Corpuscular Hemoglobin Concent 34 32-36 g/dL Red Cell Distribution Width 12.8 10.0-14.5 % Platelet Count 269 130-400 10^3/uL Mean Platelet Volume 9.7 9.0-12.2 fL Immature Granulocyte % (Auto) 1 % Neutrophils (%) (Auto) 77 H 42-75 % Lymphocytes (%) (Auto) 14 12-44 % Monocytes (%) (Auto) 8 0-12 % Eosinophils (%) (Auto) 1 0-10 % Basophils (%) (Auto) 0 0-10 % Neutrophils # (Auto) 13.3 H 1.8-7.8 10^3/uL Lymphocytes # (Auto) 2.4 1.0-4.0 10^3/uL Monocytes # (Auto) 1.4 H 0.0-1.0 10^3/uL Eosinophils # (Auto) 0.1 0.0-0.3 10^3/uL Basophils # (Auto) 0.1 0.0-0.1 10^3/uL Immature Granulocyte # (Auto) 0.1 0.0-0.1 10^3/uL Neutrophils % (Manual) 71 % Lymphocytes % (Manual) 14 % Monocytes % (Manual) 9 % Band Neutrophils 6 % Sodium Level 137 135-145 MMOL/L Potassium Level 3.9 3.6-5.0 MMOL/L Chloride Level 105 98-107 MMOL/L Carbon Dioxide Level 20 L 21-32 MMOL/L Anion Gap 12 5-14 MMOL/L Blood Urea Nitrogen 12 7-18 MG/DL Creatinine 1.13 0.60-1.30 MG/DL Estimat Glomerular Filtration Rate 86 BUN/Creatinine Ratio 11 Glucose Level 111 H 70-105 MG/DL Lactic Acid Level 1.20 0.50-2.00 MMOL/L Calcium Level 9.1 8.5-10.1 MG/DL Corrected Calcium 8.9 8.5-10.1 MG/DL Total Bilirubin 0.9 0.1-1.0 MG/DL Aspartate Amino Transf (AST/SGOT) 23 5-34 U/L Alanine Aminotransferase (ALT/SGPT) 58 H 0-55 U/L Alkaline Phosphatase 46 40-136 U/L C-Reactive Protein High Sensitivity 9.47 H 0.00-0.50 MG/DL Total Protein 6.9 6.4-8.2 GM/DL Albumin 4.3 3.2-4.5 GM/DL Urine Color YELLOW Urine Clarity CLEAR Urine pH 6.0 5-9 Urine Specific [place] 1.015 L 1.016-1.022 Urine Protein NEGATIVE NEGATIVE Urine Glucose (UA) 3+ H NEGATIVE Urine Ketones NEGATIVE NEGATIVE Urine Nitrite NEGATIVE NEGATIVE Urine Bilirubin NEGATIVE NEGATIVE Urine Urobilinogen 1.0 < = 1.0 MG/DL Urine Leukocyte Esterase NEGATIVE NEGATIVE Urine RBC (Auto) NEGATIVE NEGATIVE Urine RBC NONE /HPF Urine WBC NONE /HPF Urine Crystals NONE /LPF Urine Bacteria NEGATIVE /HPF Urine Casts NONE /LPF Urine Mucus NEGATIVE /LPF Urine Culture Indicated NO (MARI LIVINGSTON MD) Micro Results Microbiology 08/29/22 Blood Culture - Preliminary, Resulted No growth 08/29/22 Blood Culture - Preliminary, Resulted No growth 08/29/22 Throat Culture - Final, Complete No Beta Strep isolated (MARI LIVINGSTON MD) Vital Signs/I&O 08/29/22 08/29/22 18:22 21:25 Temp 37.9 Pulse 98 101 Resp 18 18 B/P (MAP) 129/84 (99) 114/75 Pulse Ox 95 92 (MARI LIVINGSTON MD) Vital Signs/I&O Capillary Refill : Less Than 3 Seconds (KINGA SHEA APRN) Blood Pressure Mean: 99 Progress Note : Progress Note Patient seen and evaluated, resting comfortably in bed, no acute distress. Based on exam and symptoms, work-up initiated including CBC, CMP, lactic acid, sputum culture, chest x-ray, flu, COVID, strep. IV fluids ordered. Labs and imaging reviewed. CBC shows elevated WBC 17.4, elevated neutrophil percentage 77. CMP shows slightly decreased CO2 20, glucose 111, ALT slightly elevated 58. Lactic acid normal at 1.20. COVID, flu, strep negative. Chest x- ray negative for acute findings. CRP and urinalysis added on. CRP elevated 9.47. Urine shows 3+ glucose, no infection. Will draw blood cultures. I am concerned for his elevated white blood cell count and CRP. Results discussed with patient. He states that he feels better. I will discharge with prescription for amoxicillin to treat possible strep even though rapid was negative. Discharge instructions and return precautions provided. (KINGA SHEA APRN) Diagnostic Imaging Diagonstic Imaging: Xray Plain Films/CT/US/NM/MRI: chest Comments [facility]. [place], [place] NAME: GABE BOLANOS [facility] REC#: [id number] PT STATUS: REG ER : 1985 PHYSICIAN: KINGA SHEA APRN ADMIT DATE: 08/29/22/ER Signed Date of Exam:08/29/22 CHEST 1 VIEW, AP/PA ONLY EXAMINATION: Chest 1 view. HISTORY: Shortness of breath. Sore throat. Fever. COMPARISON: 04/20/2014. FINDINGS: The lung volumes are normal. No focal consolidation is seen. No large pleural effusion or pneumothorax is seen. The cardiomediastinal silhouette is normal in size and contour. No acute osseous abnormality is seen. IMPRESSION: No acute pleuroparenchymal process. Dictated by: Dictated on workstation # [id number] Dict: 08/29/228 Trans: 08/29/221855 [facility] [id number] Interpreted by: BETH CONWAY DO Electronically signed by: BETH CONWAY DO 08/29/221855 (KINGA SHEA APRN) Departure Impression Primary Impression: Fever Additional Impressions: Influenza-like symptoms Pharyngitis Disposition: HOME, SELF-CARE Condition: Stable Departure-Patient Inst. Decision time for Depature: 21:05 (KINGA SHEA APRN) Referrals: ANA MARIA OCAMPO (PCP/Family) Primary Care Physician Patient Instructions: Fever, Adult (DC) Add. Discharge Instructions: Complete full course of antibiotic as directed. Make sure you drink plenty of water, stay away from caffeinated, high sugar beverages. Follow-up with primary care provider. Return for inability to swallow, tongue swelling, change in voice, difficulty breathing, recurrent vomiting, or any other new, concerning, or worsening symptoms. All discharge instructions reviewed with patient and/or family. Voiced understanding. Scripts Amoxicillin (Amoxicillin) 500 Mg Capsule 500 MG PO BID for 10 Days, #20 CAP 0 Refills Prov: KINGA SHEA APRN 08/29/22 ATTENDING PHYSICIAN NOTE: I was physically present as attending physician in the emergency department during the care of this patient. I was consulted on this case by Kinga Shea, JUAN. I advised checking a CRP. CRP was mildly elevated at 9. Because of his risk factors with diabetes and concerns for possible occult bacterial infection, I recommended treating with Rocephin and prescribing antibiotics to treat pharyngitis. Throat culture is pending. I did not personally examine or interview this patient. I was not otherwise directly involved in the decision making or delivery of care for this patient. (MARI LIVINGSTON MD) KINGA SHEA APRN August 29, 2022 18:36 MARI LIVINGSTON MD August 31, 2022 19:21
[2022-08-29 18:41] LABS: BASOPHILS # (AUTO) 0.1 10^3/uL (0.0-0.1); BASOPHILS % (AUTO) 0 % (0-10); EOSINOPHILS # (AUTO) 0.1 10^3/uL (0.0-0.3); EOSINOPHILS % (AUTO) 1 % (0-10); HEMATOCRIT 45 % (40-54); HEMOGLOBIN 15.3 g/dL (13.3-17.7); LYMPHOCYTES # (AUTO) 2.4 10^3/uL (1.0-4.0); LYMPHOCYTES % (AUTO) 14 % (12-44); MEAN CORPUSCULAR HEMOGLOBIN 32 pg (25-34); MEAN CORPUSCULAR HGB CONC 34 g/dL (32-36); MEAN CORPUSCULAR VOLUME 92 fL (80-99); MEAN PLATELET VOLUME 9.7 fL (9.0-12.2); MONOCYTES # (AUTO) 1.4 10^3/uL (0.0-1.0); MONOCYTES % (AUTO) 8 % (0-12); NEUTROPHILS # (AUTO) 13.3 10^3/uL (1.8-7.8); NEUTROPHILS % (AUTO) 77 % (42-75); PLATELET COUNT 269 10^3/uL (130-400); WHITE BLOOD COUNT 17.4 10^3/uL (4.3-11.0)
--- NOTE | 2022-08-29 18:49 | Diagnostic Imaging Report ---
EXAMINATION: Chest 1 view. HISTORY: Shortness of breath. Sore throat. Fever. COMPARISON: 04/20/2014. FINDINGS: The lung volumes are normal. No focal consolidation is seen. No large pleural effusion or pneumothorax is seen. The cardiomediastinal silhouette is normal in size and contour. No acute osseous abnormality is seen. IMPRESSION: No acute pleuroparenchymal process. Dictated by: Dictated on workstation # [id number]
[2022-08-29 19:10] LABS: ALBUMIN 4.3 GM/DL (3.2-4.5); POTASSIUM 3.9 MMOL/L (3.6-5.0)
[2022-08-29 19:11] LABS: CALCIUM 9.1 MG/DL (8.5-10.1)
[2022-08-29 19:13] LABS: TOTAL PROTEIN 6.9 GM/DL (6.4-8.2)
[2022-08-29 19:14] LABS: BILIRUBIN,TOTAL 0.9 MG/DL (0.1-1.0)
[2022-08-29 19:16] LABS: CREATININE SERUM 1.13 MG/DL (0.60-1.30)
[2022-08-29 19:50] LABS: BAND NEUTROPHILS 6 %; LYMPHOCYTES % (MANUAL) 14 %; MONOCYTES % (MANUAL) 9 %; NEUTROPHILS % (MANUAL) 71 %
[2022-08-29] MEDS ORDERED: KETOROLAC 30 MG/ML VIAL IVP ONE (20:00)
[2022-08-29 20:17] LABS: BILIRUBIN,URINE NEGATIVE (NEGATIVE); CLARITY,URINE CLEAR; COLOR,URINE YELLOW; GLUCOSE, URINE (UA) 3+ (NEGATIVE); KETONES,URINE NEGATIVE (NEGATIVE); LEUKOCYTE ESTERASE ,URINE NEGATIVE (NEGATIVE); NITRITE,URINE NEGATIVE (NEGATIVE); PROTEIN,URINE NEGATIVE (NEGATIVE)
[2022-08-29] MEDS ORDERED: cefTRIAXone IV/IM 1,000 MG in NS (IVPB) 50 ML IV ONE (20:45)
[2022-08-29 20:51] LABS: BACTERIA,URINE NEGATIVE /HPF
[2022-08-29] MEDS ORDERED: AMOX500C2 PO (21:08)
[2022-08-29 21:25] VITALS: BP 114/75
== END 2022-08-29 21:25 | disposition home or self-care (01) ==
LOC: EDUNIT# 18:15 → ER 18:17
DX: J11.1 Influenza due to unidentified influenza virus with other respiratory manifestations (principal); I10 Essential (primary) hypertension; E11.9 Type 2 diabetes mellitus without complications; F17.200 Nicotine dependence, unspecified, uncomplicated; Z79.899 Other long term (current) drug therapy; Z79.84 Long term (current) use of oral hypoglycemic drugs; Z20.822 Contact with and (suspected) exposure to COVID-19
CPT/HCPCS: 36415; 71045; 80053; 81000; 83605; 85007; 85027; 86141; 87040; 87430; 87636